=== PATIENT | female | born 1965 | race Caucasian/White ===

== ENCOUNTER 2019-07-05 10:41 | Emergency (ER) | payer BC, SELFPAY ==
--- NOTE | ~2019-07-05 | XR_ITS ---
XR foot RT 2V 07/05/2019 12:02 Indication: Diabetic foot. Right foot swelling. Phantom first toe pain. Procedure: 2 views right foot Comparison: 06/06/2019 Findings: Status post amputation of the right first toe at the metatarsophalangeal joint. There is a nondisplaced fracture of the second proximal phalanx. Lisfranc joint intact. There is mild polyarticu lar osteoarthritis. Impression: 1: Nondisplaced fracture right second proximal phalanx. 2: Status post amputation right first toe at the metatarsophalangeal joint. Reviewed, dictated and finalized at location A. HIATRY ADULT PHYSICIAN Impression: 1: Nondisplaced fracture right second proximal phalanx. 2: Status post amputation right first toe at the metatarsophalangeal joint.
[2019-07-05 10:47] VITALS: BP 120/64; PULSE 90; RESP 16; TEMP 37.1; O2SAT 97
--- NOTE | 2019-07-05 11:27 | ED.LOWEXIN ---
HPI - Extremity Injury (Lower) General Chief Complaint: Extremity Injury, Lower Stated Complaint: toe swelling Time Seen by Provider: 07/05/19 11:15 Source: patient Mode of arrival: ambulatory Limitations: no limitations History of Present Illness HPI Narrative: A 53 y/o female presents to the ED with c/o right 2nd toe redness and swelling. She notes that she had her right great toe amputated on 06/09/[address] Kuo. Pt adds that she was told to come to the ED if there was any changes to her right foot. She reports warmth to the amputation site, but denies numbness and tingling. Pt has a PMHx of diabetes, HTN, and hyperlipidemia. MD complaint: other (Right 2nd toe redness and swelling) Injury: Right: toes (2nd) Context: other (Recent right great toe amputation) Other symptoms: other (Warmth to right great toe amputation site) Related Data Home Medications Medication Instructions Recorded Confirmed Adult One Daily Multivitamin 0.4 mg PO DAILY 06/06/19 06/23/19 atorvastatin 10 mg PO DAILY 06/06/19 06/23/19 fluoxetine 40 mg PO DAILY 06/06/19 06/23/19 glyburide-metformin 2 tablet PO BID 06/06/19 06/23/19 losartan 100 mg PO DAILY 06/06/19 06/23/19 Allergies Allergy/AdvReac Type Severity Reaction Status Date / Time Penicillins Allergy Unknown Verified 07/05/19 10:52 Review of Systems Review of Systems: All systems reviewed & are unremarkable except as noted in HPI and below Integumentary/Breasts: Skin/Breast: Reports erythema (Right 2nd toe), Reports skin swelling (Right 2nd toe) and Reports other (Warmth to right great toe amputation site) Neurologic: Denies numbness and Denies tingling PMFSH Past Medical History Medical History 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) Diabetes mellitus type 2 with complications Diabetic foot ulcer Hypercholesterolemia Hypertension Surgical History Surgical History History of surgical procedure on eye proper using laser Family History Family History Father , father of dementia No problems noted. Mother Diabetes mellitus Social History Social History Smoking packs per day: 0.5 Smoking cigarettes per day: 10.0 Smoking status: Former smoker Additional smoking assessment comments: does not smoke cigarettes Alcohol intake: current Drinks per week: 2 Substance use: never Gender identity (if verbalized by the patient): Female Spiritual care concerns: No Agree to blood products: Yes Exam Narrative: Exam Narrative: General appearance: Well-developed, well-nourished Skin: Normal color, right foot showed status post right big toe amputation, the wound is dry and clean, diffuse swelling, redness and slight warmth of the second toe dorsally, no tenderness which is Head: Normocephalic, nontraumatic Eyes: Clear conjunctiva ENT: Oropharynx normal, ears normal, nose normal Neck: Supple, nontender Chest and respiratory: Airway patent, no respiratory distress, no accessory muscle use Heart: Regular rate/rhythm Vascular: Normal peripheral pulses, normal capillary refill. 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 Kuo. They agree with plan to prescribe patient Keflex and sent her home. Date: 07/05/19 Time: 12:38 Vital Signs Vital signs: Vital Signs Temperature 37.1 C
[2019-07-05 12:32] LABS: Basophils Absolute Auto 0.1 K/mm3 (0.0-0.1); Basophils Percent Auto 0.6 % (0.2-1.2); Eosinophils Absolute Auto 2.1 K/mm3 (0-0.3); Hematocrit 33.5 % (37.0-47.0); Hemoglobin 11.1 g/dL (12.0-15.0); Immature Granulocyte Absolute 0.02 K/mm3 (0.00-0.031); Immature Granulocyte Percent A 0.2 % (0-0.5); Lymphocytes Absolute Auto 1.33 K/mm3 (0.9-3.2); Lymphocytes Percent Auto 14.9 % (18.3-44.2); Mean Corpuscular HGB Conc 33.1 g/dl (32-36); Mean Corpuscular Hemoglobin 29.8 pg (26-34); Mean Corpuscular Volume 90.1 fl (80-100); Mean Platelet Volume 10.4 fl (7.4-10.4); Monocytes Absolute Auto 0.5 K/mm3 (0.1-0.6); Monocytes Percent Auto 5.1 % (2.6-8.5); Neutrophils Percent Auto 56.2 % (45.5-73.1); Platelet Count Result 200 k/mm3 (150-375); Red Blood Count 3.72 M/mm3 (4.2-5.4); Red Cell Distribution Width 12.3 % (11.5-14.5); White Blood Count 8.9 K/mm3 (4.5-10.0)
[2019-07-05 12:42] LABS: Prothrombin Time 13.1 Seconds (11.1-14.7)
[2019-07-05 12:43] LABS: Alanine Aminotransferase 19 U/L (4-35); Albumin Level 4.2 g/dL (3.5-5.1); Alkaline Phosphatase 136 U/L (38-126); Aspartate Amino Transferase 27 U/L (14-36); Bilirubin,Total 0.9 mg/dL (0.2-1.3); Blood Urea Nitrogen 32 mg/dL (7-17); Calcium 9.7 mg/dL (8.4-10.2); Carbon Dioxide 26 mmol/L (22-30); Chloride 97 mmol/L (98-107); Estimated CRCL calculation 49 ml/min; Estimated Glomerular Filt Rate 36; Glucose 225 mg/dL (65-105); Potassium 5.2 mmol/L (3.4-5.0); Sodium 134 mmol/L (137-145)
[2019-07-05 13:36] VITALS: BP 136/55; PULSE 77; RESP 16; O2SAT 100
== END 2019-07-05 14:40 | disposition home or self-care (01) ==
PROVIDERS: Emergency Provider Emergency Medicine; PCP Internal Medicine
DX: T87.43 Infection of amputation stump, right lower extremity (principal); S92.514A Nondisplaced fracture of proximal phalanx of right lesser toe(s), initial encounter for closed fracture; E11.69 Type 2 diabetes mellitus with other specified complication; E78.00 Pure hypercholesterolemia, unspecified; I10 Essential (primary) hypertension; F17.210 Nicotine dependence, cigarettes, uncomplicated; X58.XXXA Exposure to other specified factors, initial encounter; Z79.84 Long term (current) use of oral hypoglycemic drugs
CPT/HCPCS: 36415; 73620; 80053; 85025; 85610; 87040; 96365; 96366; 99284; J3370

== ENCOUNTER 2019-07-14 07:51 | Outpatient (RCR) | payer BC, SELFPAY ==
[2019-06-23 09:12] VITALS: BMI 37.6
--- NOTE | 2019-06-23 10:30 | P.PNOP_ITS ---
Progress Note: A&P Assessment and Plan (1) Amputation toe: Onset Date: 06/08/19 Qualifiers: Laterality: right Qualified Code(s): S98.131A - Complete traumatic amputation of one right lesser toe, initial encounter Code(s): S98.139A - Complete traumatic amputation of one unspecified lesser toe, initial encounter Status: Acute Assessment and Plan: [facility] wound clinic evaluation 3 weeks s/p right hallux amputation. Incision well- approximated. Sutures removed today. Scant serous drainage. No surrounding redness/warmth/swelling. Patient to continue transfer dressing to incision line and cover dry x2 weeks. Continue use of post-op shoe. Patient will need to be fit with custom orthotics/depth shoes. Continue use of walker x1 week/PWB on heel and then transition to WBAT. Monitor for signs/symptoms of infection to report to ED immediately. Discussed importance of close blood glucose control/proper nutrition. Patient completed IV antibiotics yesterday. Awaiting final recommendations from Dr. Ward. Midline still in place. Home health to visit tomorrow. Follow up in [address] Kuo. Subjective Subjective Date/Time Seen: 06/23/19 10:30 [facility] wound clinic evaluation s/p right hallux amputation. Review of Systems Constitutional: Constitutional: Denies chills, Denies fatigue and Denies night sweats Cardiovascular: Cardiovascular: Denies chest pain, Denies diaphoresis, Denies lightheadedness and Denies palpitations Respiratory: Respiratory: Denies cough and Denies dyspnea Gastrointestinal: Gastrointestinal: Denies abdominal pain, Denies diarrhea, Denies nausea and Denies vomiting Genitourinary: Genitourinary: Denies urinary hesitancy Musculoskeletal: Musculoskeletal: Reports numbness (chronic neuropathy ) and Reports tingling (chronic neuropathy ) Exam Const: General: comfortable and no acute distress Resp: Effort & Inspection: normal respiratory effort Cardio: Rate: regular rate Rhythm: regular rhythm GI: Inspection: non-distended Auscultation: normal bowel sounds Skin: Wounds: wounds noted (see extremity exam ) Neuro: Cognition (Neuro): normal cognition Motor exam (neuro): 5/5 motor strength present throughout Sensory Exam: normal sensation (chronic neuropathy b/l LE ) Extrem: Right lower extremity: foot (s/p right Hallux amputation. ) Other: Right Hallux Amputation. Incision remains well-approximated, sutures removed. Scant serousanguinous drainage. Surrounding erythema improved. Negative Oliverio's Sign. Palpable pedal pulses. Decreased sensation b/l LE from hindfoot distal. Psych: Mental Status: mental status grossly normal Affect: normal affect Objective Data Meds/Results Medications: Active Medications Generic Name Dose Route Start Last Admin Trade Name Freq PRN Reason Stop Dose Admin Wound Care/Dressing Products 2 patch 06/23/19 08:33 Mepilex Transfer Drsg 6x8 TOPICAL 09/22/19 10:00 PRN PRN Wound Care
--- NOTE | 2019-07-14 09:08 | PM.PNORT ---
Progress Note: A&P Assessment and Plan (1) Diabetes mellitus type 2 with complications: Code(s): E11.8 - Type 2 diabetes mellitus with unspecified complications Status: Chronic (2) Amputation toe: Onset Date: 06/08/19 Qualifiers: Laterality: right Qualified Code(s): S98.131A - Complete traumatic amputation of one right lesser toe, initial encounter Code(s): S98.139A - Complete traumatic amputation of one unspecified lesser toe, initial encounter Status: Acute Assessment and Plan: Five weeks status post right hallux amputation. Incision well-healed. No signs of infection at amputation site. (3) Toe fracture, right: Qualifiers: Encounter type: subsequent encounter Toe: lesser toe Fracture type: closed Phalanx: middle Fracture alignment: nondisplaced Fracture healing: with delayed healing Qualified Code(s): S92.524G - Nondisplaced fracture of middle phalanx of right lesser toe(s), subsequent encounter for fracture with delayed healing Code(s): S92.911A - Unspecified fracture of right toe(s), initial encounter for closed fracture Status: Acute Assessment and Plan: Right 2nd toe fracture. Discussed concern for possible infection although there is no redness, warmth or drainage today. Patient and family feel that the swelling has improved and that overall she is doing better. Discussed need to keep a close eye on this. There did checked toe daily. Continue with postoperative shoe for protection. Notify office for any changes. Otherwise follow-up in 10 days for new radiographs right foot and re-evaluation. Subjective Subjective Date/Time Seen: 07/14/19 08:20 Patient returns for follow-up of right hallux osteomyelitis status post amputation June 08, 2019. Completed intravenous antibiotics approximately 2 weeks ago. Had episode of 2nd toe swelling last week. She presented to the emergency room and was told she had a fracture. She was started on oral antibiotics for prophylaxis. She states swelling in the 2nd toe has slightly improved since the episode. She has no pain due to her neuropathy. No systemic complaints, no fever, chills, redness or proximal streaking, systemic complaints. Review of Systems Constitutional: Constitutional: Reports chills and Reports difficulty sleeping Eyes: Eyes: Reports no additional eye complaints ENT: Reports Normal hearing present Cardiovascular: Cardiovascular: Denies chest pain, Denies lightheadedness and Denies palpitations Respiratory: Respiratory: Denies cough, Denies dyspnea, Denies dyspnea on exertion and Denies wheezing Gastrointestinal: Gastrointestinal: Reports diarrhea and Reports nausea Genitourinary: Genitourinary: Reports no additional female genitourinary complaints Musculoskeletal: Musculoskeletal: Reports arthralgias (Right Hallux ) and Reports joint swelling (Right Hallux ) Integumentary/Breasts: Skin/Breast: Reports erythema (Right hallux ) and Reports wounds (Right dorsal hallux ulcer over the IP joint with probing to bone ) Neurologic: Reports numbness Comments: B/L feet, mild neuropathy Psychiatric: Psychiatric: Reports no additional psychiatric complaints Exam Const: General: comfortable and no acute distress Resp: Effort & Inspection: normal respiratory effort Cardio: Rate: regular rate Rhythm: regular rhythm GI: Inspection: non-distended Auscultation: normal bowel sounds Skin: Wounds: wounds noted (see extremity exam ) Neuro: Cognition (Neuro): normal cognition Motor exam (neuro): 5/5 motor strength present throughout Sensory Exam: normal sensation (chronic neuropathy b/l LE ) Extrem: Right lower extremity: foot (s/p right Hallux amputation. ) Other: Right Hallux Amputation incision well-healed. No openings or areas of drainage. Moderate swelling 2nd toe without erythema or drainage. No increased warmth. Crepitance noted at the proximal phalanx. Third 4th and
== END 2019-09-07 07:47 | disposition home or self-care (01) ==
LOC: ANHWOC 07:51
PROVIDERS: PCP Internal Medicine; Visit Provider Orthopaedic Surgery
DX: Z47.81 Encounter for orthopedic aftercare following surgical amputation (principal)
CPT/HCPCS: 99211; 99212; G0463

== ENCOUNTER 2019-11-30 10:27 | Outpatient (CLI) | payer BC, SELFPAY ==
--- NOTE | ~2019-11-30 | XR_ITS ---
EXAMINATION: XR ankle RT min 3V, XR foot RT min 3V DATE: 11/30/2019 10:51 INDICATION: Medial right foot and ankle pain. TECHNIQUE: 1. Anteroposterior, mortise, additional oblique and lateral view of the right ankle were obtained. 2. Dorsoplantar, two oblique and lateral views of the right foot were obtained. COMPARISON: None. FINDINGS: First transmetatarsal phalangeal amputation of the great toe. Fracture of the second proximal phalang eal diaphysis which is healing with 20 degree medial angulation. No other fractures identified. Mild polyarticular osteoarthritis involving the majority of the joints throughout the right foot and ankle . Moderate-sized plantar calcaneal spur. No right ankle joint effusion. Diffuse soft tissue swelling about the foot and ankle most prominent anterior to the ankle and hindfoot. IMPRESSION: 1. No acute osseous abnormality. 2. Subacute to early chronic fracture of the right second proximal phalanx which is healing with varu s angulation. 3. Degenerative skeletal changes including moderate sized plantar calcaneal spur and mild polyarticul ar osteoarthritis. Reviewed, dictated and finalized at location A. IMPRESSION: 1. No acute osseous abnormality. 2. Subacute to early chronic fracture of the right second proximal phalanx whic h is healing with varus angulation. 3. Degenerative skeletal changes including moderate sized plantar calcaneal spu r and mild polyarticular osteoarthritis.
== END 2019-11-30 10:28 | disposition home or self-care (01) ==
PROVIDERS: PCP Internal Medicine; Visit Provider Internal Medicine
DX: M25.571 Pain in right ankle and joints of right foot (principal); M86.9 Osteomyelitis, unspecified; E11.9 Type 2 diabetes mellitus without complications; N18.3 Chronic kidney disease, stage 3 (moderate)
CPT/HCPCS: 73610; 73630

== ENCOUNTER 2020-03-26 02:58 | Emergency (ER) | payer BC, SELFPAY ==
--- NOTE | ~2020-03-26 | XR_ITS ---
EXAMINATION: XR ankle RT min 3V DATE: 03/26/2020 03:47 INDICATION: Right ankle pain post fall TECHNIQUE: Anteroposterior, oblique, mortise, and lateral views of the right ankle were obtained. COMPARISON: 11/30/2019 FINDINGS: Mildly comminuted oblique fracture of the distal right fibular metaphysis with fracture line exiting the medial cortex approximately 1.2 cm above level of the tibiotalar joint line. There is 8 mm cephal ad and lateral displacement and mild posterior angulation. There is prominent widening of the medial clear space consistent with deltoid ligament tear. There is some unchanged heterotopic ossification a long the medial side of the tip of the medial malleolus as well as along the medial margin of the alicia ar dome likely sequela of a more chronic ankle sprain. There is a small fracture along the posterior malleolus with mild cephalad displacement resulting in approximately 3 mm step-off at the posterior m ost margin of the tibial plafond. In addition to the mild lateral subluxation of the talar dome with respect to the tibial plafond and there is prominent widening of the anterior tibiotalar joint space. Plantar calcaneal spur. Remaining joint spaces in the foot appear relatively preserved. IMPRESSION: 1. Unstable Gardiner B3 injury pattern at the right ankle including fractures of the lateral and posteri or malleoli and widening of the medial clear space consistent with associated deltoid ligament tear. Reviewed, dictated and finalized at location A. IMPRESSION: 1. Unstable Gardiner B3 injury pattern at the right ankle including fractures of t he lateral and posterior malleoli and widening of the medial clear space consis tent with associated deltoid ligament tear.
--- NOTE | ~2020-03-26 | XR_ITS ---
EXAMINATION: XR ankle RT 2V DATE: 03/26/2020 04:18 INDICATION: Postreduction right ankle fracture TECHNIQUE: Anteroposterior and lateral views of the right ankle were obtained. COMPARISON: 03/26/2020 3:22 AM FINDINGS: Interval reduction and splinting of the previous noted right ankle fracture subluxation including fra ctures of the lateral and posterior malleoli and deltoid ligament tear. Alignment is improved with re duction to near-anatomic alignment of the ankle mortise. There is mild residual displacement of the p osterior malleolus fragment as well as of a small lateral sided butterfly fragment at the mildly comm inuted lateral malleolar fracture. There is also mild residual widening of the medial and anterior as pects of the tibiotalar joint space. IMPRESSION: 1. Improved alignment dose reduction and splinting of a alejandra B3 injury of the right ankle with later al and posterior malleolar fractures. See prior report for further detail. Reviewed, dictated and finalized at location A. IMPRESSION: 1. Improved alignment dose reduction and splinting of a alejandra B3 injury of the right ankle with lateral and posterior malleolar fractures. See prior report fo r further detail.
[2020-03-26 03:01] VITALS: BP 199/82; PULSE 86; RESP 16; TEMP 36.6; O2SAT 100
--- NOTE | 2020-03-26 03:16 | ED.GENADULT ---
HPI - General Adult General Chief complaint: Extremity Injury, Lower Stated complaint: ankle pain Source: RN notes reviewed History of Present Illness HPI narrative: Patient presents to emergency department from home for right ankle pain. Patient states that prior to arrival she walked up the stairs and was coming on the corner when she rolled her right ankle. She states she felt a pop at that time is been able to bear weight since that time. Noticed swelling and ecchymosis around the ankle. She denies any other injury denies falling or striking her head. Patient denies any other pain except for around the right ankle. Does states she has a history of diabetes with a previous amputation of her right first toe Related Data Home Medications Medication Instructions Recorded Confirmed Adult One Daily Multivitamin 0.4 mg PO DAILY 06/06/19 06/23/19 atorvastatin 10 mg PO DAILY 06/06/19 06/23/19 fluoxetine 40 mg PO DAILY 06/06/19 06/23/19 glyburide-metformin 2 tablet PO BID 06/06/19 06/23/19 losartan 100 mg PO DAILY 06/06/19 06/23/19 Allergies Allergy/AdvReac Type Severity Reaction Status Date / Time Penicillins Allergy Unknown Verified 03/26/20 03:11 Review of Systems Review of Systems: Narrative: Gen.: Denies fevers or chills Musculoskeletal: See HPI Neuro: Denies numbness, tingling, weakness Skin: Denies rash Endo: Reports diabetes mellitus [facility] Past Medical History Medical History (Updated 03/26/20 @ 05:22 by Alonso Ramos DO) 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) Diabetes mellitus type 2 with complications Diabetic foot ulcer Hypercholesterolemia Hypertension Surgical History Surgical History History of surgical procedure on eye proper using laser Family History Family History Father , father of dementia No problems noted. Mother Diabetes mellitus Social History Social History Smoking packs per day: 0.5 Smoking cigarettes per day: 10.0 Smoking status: Former smoker Additional smoking assessment comments: does not smoke cigarettes Alcohol intake: current Drinks per week: 2 Substance use: never Gender identity (if verbalized by the patient): Female Spiritual care concerns: No Agree to blood products: Yes Exam Narrative: Exam Narrative: APPEARANCE: No acute distress, nontoxic, resting in bed Eyes: EOMI HEENT: Normocephalic, atraumatic, RESPIRATORY: No respiratory distress MUSCULOSKELETAl: The right ankle is diffusely tender to palpation with swelling and ecchymosis present, no tenderness of the proximal fibula or the base of the fifth metatarsal, there is amputation of the first toe on the right, his pulse 2+ neurovascular intact overlying skin is closed with no open wounds NEURO: Awake and alert. Following commands, speech normal, no focal deficits SKIN:: Warm, dry. Normal Color no rash or lesions Course Course Emergency Course: Called and discussed with Dr. Hughes presentation and work-up. Agrees with discharge with follow-up as an outpatient. Patient with crutches given in the emergency department states he has a walker at home. Discussed no weightbearing on right foot Discussed with patient results of workup and diagnosis. Discussed need for follow-up with primary care, proper use of medication, and reasons to return to the emergency department. Patient understands and agrees to current treatment plan Vital Signs Vital signs: Vital Signs Temperature 97.9 F 03/26/20 03:01 Pulse Rate 86 03/26/20 03:01 Respiratory Rate 16 03/26/20 03:01 Blood Pressure 199/82 H 03/26/20 03:01 Pulse Oximetry 100 03/26/20 03:01 Temperature 97.9 F 03/26/20 03:01 Pulse Rate 86 03/26/20 03:01 Respiratory Rate 16 03/26/20 03:01 Blood Pressure 199/82 H 03/26/20 03:01 Pulse Oximetry 100
--- NOTE | 2020-03-26 03:45 | PC.NURSE ---
Pedal pulse doppled right foot
[2020-03-26] MEDS: fentaNYL CITRATE INJ (*CRX) 100 MCG/2 ML VIAL 25 MCG IV PUSH (03:59)
[2020-03-26 04:00] VITALS: BP 200/87; PULSE 86; RESP 16; O2SAT 100
--- NOTE | 2020-03-26 04:20 | PC.NURSE ---
Splinting to right ankle/lower leg done by Dr Ramos
[2020-03-26 05:00] VITALS: BP 138/70; PULSE 82; RESP 16; O2SAT 99
[2020-03-26 05:30] VITALS: BP 105/51; PULSE 83; RESP 16; O2SAT 99
== END 2020-03-26 06:15 | disposition home or self-care (01) ==
PROVIDERS: Emergency Provider Emergency Medicine; PCP Internal Medicine
DX: S82.841A Displaced bimalleolar fracture of right lower leg, initial encounter for closed fracture (principal); Z89.429 Acquired absence of other toe(s), unspecified side; E11.9 Type 2 diabetes mellitus without complications; E78.00 Pure hypercholesterolemia, unspecified; I10 Essential (primary) hypertension; Z87.891 Personal history of nicotine dependence; Z79.84 Long term (current) use of oral hypoglycemic drugs; X50.9XXA Other and unspecified overexertion or strenuous movements or postures, initial encounter
CPT/HCPCS: 27788; 27810; 73600; 73610; 96374; 99285; J3010

== ENCOUNTER 2020-03-29 11:28 | Outpatient (CLI) | payer BC, SELFPAY ==
[2020-03-29 23:36] LABS: SARS-CoV-2 RNA PCR Negative
== END 2020-03-29 11:29 | disposition home or self-care (01) ==
LOC: ANHCOVIDDT 11:29
PROVIDERS: PCP Internal Medicine; Visit Provider Orthopaedic Surgery
DX: Z01.812 Encounter for preprocedural laboratory examination (principal); Z20.828 Contact with and (suspected) exposure to other viral communicable diseases
CPT/HCPCS: 87635; C9803; U0003

== ENCOUNTER 2020-03-31 00:49 | Day surgery (SDC) | payer BC, SELFPAY ==
[2020-03-29 11:45] VITALS: BMI 39.1
[2020-03-31] VITALS (13 sets, daily range): BP systolic 106–179; BP diastolic 62–88; PULSE 71–80; RESP 8–18; TEMP 36–36.6; O2SAT 93–100
--- NOTE | ~2020-03-31 | XR_ITS ---
EXAMINATION: XR surgery orthopedic DATE: 03/31/2020 12:23 INDICATION: ORIF right ankle fracture TECHNIQUE: 2 fluoroscopic spot images of the right ankle were obtained during procedure performed by Dr. Kuo. Radiologist was not present for the imaging or procedure. The amount of fluoroscopy time used during this procedure was 2.6 minutes. COMPARISON: 03/29/2020 FINDINGS: Images demonstrate open reduction and internal fixation of the previous noted right ankle fracture. T he mildly comminuted lateral malleolar fracture is been fixed with a retrograde intramedullary taylor wi th distal interlocking screw and more proximal syndesmotic screw fixation. Also extending through the taylor is 8 tightrope type syndesmotic fixation with metallic buttons at either side of a lucent tract throughout the distal tibia and fibula. There is also fixation across the tibiotalar and subtalar pepe nts with a taylor extending from the anterior metadiaphyseal region of the tibia through the medial side of the tibial plafond and, the talar dome and central portion of the calcaneus. The ankle mortise is congruent and the fibular fracture is been reduced to near-anatomic alignment. Interval decrease in now mild residual posterior displacement of a small posterior malleolar fracture which remains unfixe d. Small plantar calcaneal spur. IMPRESSION: 1. Reduction in near-anatomic alignment of a prior comminuted distal fibular fracture and subluxed ti biotalar joint with internal fixation as detailed above. 2. Decrease in the degree of posterior displacement of a small unfixed posterior malleolar fragment. Reviewed, dictated and finalized at location B. IMPRESSION: 1. Reduction in near-anatomic alignment of a prior comminuted distal fibular fr acture and subluxed tibiotalar joint with internal fixation as detailed above. 2. Decrease in the degree of posterior displacement of a small unfixed posterio r malleolar fragment.
--- NOTE | 2020-03-31 07:00 | WPDHPUPDATE1 ---
History and Physical Update Update Date/Time: 03/31/20 07:00 History and Physical has been reviewed, including an updated exam of the patient. There are NO changes in the patient's condition. Covid test negative. Risks, benefits, and alternatives have been discussed and questions answered. Patient agrees to proceed with procedure.
[2020-03-31] MEDS: LACTATED RINGERS 1,000 ML 30 ML IV CONT ×2 (09:16→11:47)
[2020-03-31] MEDS: ACETAMINOPHEN 500 MG TABLET 1000 MG PO (09:21)
--- NOTE | 2020-03-31 09:25 | WPDANESEPPF ---
Anes - Initial Pre Proc Eval Procedure: Operation Date: 03/31/20 09:30 Proposed Procedures p Open Reduction Internal Fixation Of Right Ankle Fracture - Alonzo Kuo MD Date/Time: 03/31/20 09:25 Surgeon: Alonzo Kuo MD Pre Op Diagnosis: Right Ankle Fracture Patient Data Age: 54 Gender: F Height: 5 ft 7 in Weight: 113.4 kg Allergies Allergy/AdvReac Type Severity Reaction Status Date / Time Penicillins Allergy Unknown Verified 03/29/20 11:45 reaction Home Medications Medication Instructions Recorded Confirmed Type Adult One Daily Multivitamin 0.4 mg PO DAILY 06/06/19 03/31/20 History atorvastatin 10 mg PO DAILY 06/06/19 03/31/20 History fluoxetine 40 mg PO DAILY 06/06/19 03/31/20 History glyburide-metformin 2 tablet PO BID 06/06/19 03/31/20 History losartan 100 mg PO DAILY 06/06/19 03/31/20 History foam bandage [Mepilex] #30 ea 06/10/19 03/29/20 Rx hydrocodone-acetaminophen 1 tablet PO Q4H PRN #14 tablet 03/26/20 03/29/20 Rx carvedilol 6.25 mg PO BID 03/29/20 03/31/20 History Patient hx anesthesia problems: none Family hx anesthesia problems: none PMFSH Past Medical History Medical History 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) Bimalleolar fracture of right ankle Depression Diabetes mellitus type 2 with complications Diabetic foot ulcer Hypercholesterolemia Hypertension Vision changes Surgical History Surgical History History of surgical procedure on eye proper using laser Family History Family History Father , father of dementia No problems noted. Mother Diabetes mellitus Social History Social History Smoking packs per day: 0.5 Smoking cigarettes per day: 10.0 Years smoked: 6 Smoking pack-years: 3.00 Smoking status: Former smoker Additional smoking assessment comments: QUIT 30 YEARS AGO Alcohol intake: current Drinks per week: 6 Substance use: never Gender identity (if verbalized by the patient): Female Spiritual care concerns: No Agree to blood products: Yes Anes - Eval Final PreProcedure Day of Procedure 03/31/20 09:25 Patient weight: obese Heart: regular rate and rhythm Lungs: clear to auscultation Airway: Mallampati scale class II Neurological: alert and oriented Last oral intake: >/= 8 hours ASA classification: III Emergent: no Anesthetic plan: proceed Anesthesia type and monitoring: general LMA and standard monitoring Informed Consent: The patient's anesthetic plan and its attendant risks and benefits were discussed with the patient/family/POA. Questions were solicited and answers provided to the satisfaction of the patient/family/POA.
[2020-03-31 09:26] LABS: Glucose Point of Care 167 (65-105)
[2020-03-31] MEDS: KETOROLAC 15 MG/ML VIAL (*BKC) IV PUSH (09:35)
[2020-03-31 09:49] LABS: Anion Gap 8 mmol/L (8-16); Blood Urea Nitrogen 28 mg/dL (7-17); Calcium 9.3 mg/dL (8.4-10.2); Carbon Dioxide 27 mmol/L (22-30); Chloride 105 mmol/L (98-107); Estimated CRCL calculation 61 ml/min; Estimated Glomerular Filt Rate 47; Glucose 169 mg/dL (65-105); Potassium 5.3 mmol/L (3.4-5.0); Sodium 140 mmol/L (137-145)
[2020-03-31] MEDS: ceFAZolin 2 GM/D5W 50 ML 2 GM/50 ML BAG IVPB (09:55)
[2020-03-31] MEDS: BUPIVACAINE HCL 0.5% PF 30 ML VIAL INFILTRATE (10:28)
--- NOTE | 2020-03-31 10:52 | SUR.OPER ---
Previously charted under wrong user, Jhoana Grimm RN documented procedure.
--- NOTE | 2020-03-31 12:02 | PM.PROC ---
Procedure Note - Detailed Date of procedure: 03/31/20 Pre-op diagnosis: Right Ankle Fracture right distal tibia fibular syndesmosis disruption Post-op diagnosis: same Procedure performed: Open reduction internal fixation right ankle fracture and syndesmosis Description of procedure: Indications: Patient is a 54-year-old woman with diabetes and peripheral neuropathy who sustained a right ankle bimalleolar fracture with displacement as well as syndesmosis disruption. She presents now for operative treatment. What was done: Patient identified in the preoperative holding. Informed consent given. Operative extremity marked. Patient received intravenous antibiotics. Patient brought to the operating room where underwent general anesthetic by anesthesia team. Positioned supine on operating room table. Time-out performed confirming the patient, site of the surgery and the plan. Right lower extremity prepped draped usual sterile surgical fashion using a ChloraPrep skin solution. Foot and ankle exsanguinated and a thigh tourniquet inflated to 250 mmHg. Fibular fracture addressed 1st. Longitudinal incision made over the fracture with a 15 blade knife. Hemostasis controlled electrocautery. Fascia incised in line with skin incision. Fracture identified and bone clamp used to reduce the bone. Fixation then achieved with an intramedullary nail. A incision made distal to the fibula with 15 blade knife. Blunt dissection down to the tip of the fibula. Guide pin inserted and verified with fluoroscopy. Over reaming of the guide pin performed of the nail inserted. A guide pin was removed. Image intensification confirmed location and placement. Proximal fixation was deployed. Distal fixation was achieved with 2.7 mm screws x3. Wounds thoroughly irrigated and closed with 3 0 Monocryl interrupted suture 4 O nylon for the skin. Syndesmosis then addressed. Ankle mortise and syndesmosis reduced and lateral incision from the fibula utilized. This was done with 15 blade knife and blunt dissection. Drill then placed through the fibula through the intramedullary nail into the tibia. 3.5 mm fully-threaded screw used to secure the syndesmosis. An Arthrex 2. FiberWire tight rope system then also utilized. A drill placed through the nail fibula and into the tibia. A FiberWire tight rope inserted from lateral to medial and position on the medial cortex of the tibia. Suture then tightened with good fixation. Ankle mortise in neutral with the syndesmosis secured. Image intensification confirmed alignment and placement of the hardware. Wounds thoroughly irrigated antibiotic solution and closed with 3 0 Monocryl interrupted suture and 4 O nylon interrupted sutures for the skin. patient with diabetes and peripheral neuropathy and instability of the ankle. 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 Transection pin for the ankle mortise was felt to be indicated. A threaded Steinmann pin was then placed percutaneously from the plantar heel across the subtalar and tibiotalar joints and brought out the anteromedial tibia. Stab incision made at the skin and the pin brought out through the skin go over the tibia. Pin was then cut outside the skin. Plantar insertion site closed with 4 0 nylon interrupted suture. Sterile dressing applied. The patient was then woken from anesthesia, extubated and taken to the recovery room in stable condition. All sponge, needle, instrument counts were correct at the end of the case. Implants: Arthrex distal fibula intramedullary nail. 3.5 mm fully-threaded cortical screw and Arthrex tight rope syndesmosis system Anesthesia: GLMA Surgeon: Alonzo Kuo MD Donkey Ride Operator: 1st casting assistant Estimated blood loss (mL): 10 Tourniquet time (min): 80 Drains: No Packing: No Pathology: none sent Complications: None Condition: stable Disposition: PACU
[2020-03-31 12:39] LABS: Glucose Point of Care 151 (65-105)
--- NOTE | 2020-03-31 12:58 | PC.NURSE ---
This patient, Julia Ingram, was admitted to Medical Room 253-01. Patient/family oriented to hospital policies and general routines including ID bracelet, bed and alarms, visiting hours, pain management, procedures, bathroom and other care routines, personal items, smoking policy, room service/diet, and visiting hours. Information on how to activate the Rapid Response Team has been discussed. Patient/Family are encouraged to report perceived risks to care and to ask questions if they do not understand what they are told or what they should do.
[2020-03-31 14:15] LABS: Glucose Point of Care 179 (65-105)
[2020-03-31] MEDS: DOCUSATE SODIUM 100 MG CAPSULE PO (16:55)
[2020-03-31] MEDS: metFORMIN HCL 500 MG TABLET 1000 MG PO (16:55)
[2020-03-31] MEDS: glyBURIDE 5 MG TABLET 10 MG PO (16:55)
[2020-03-31] MEDS: carvediloL 6.25 MG TABLET PO (16:56)
[2020-03-31 17:05] LABS: Glucose Point of Care 362 (65-105)
[2020-03-31] MEDS: FAMOTIDINE 20 MG TABLET PO (20:25)
[2020-03-31 21:04] LABS: Glucose Point of Care 418 (65-105)
[2020-03-31] MEDS: ACETAMINOPHEN 325 MG TABLET 650 MG PO (23:25)
[2020-04-01 02:35] VITALS: BP 126/69; PULSE 96; RESP 18; TEMP 37.1; O2SAT 96
[2020-04-01 05:47] LABS: Anion Gap 8 mmol/L (8-16); Blood Urea Nitrogen 36 mg/dL (7-17); Calcium 8.6 mg/dL (8.4-10.2); Carbon Dioxide 25 mmol/L (22-30); Chloride 100 mmol/L (98-107); Estimated CRCL calculation 57 ml/min; Estimated Glomerular Filt Rate 43; Glucose 275 mg/dL (65-105); Potassium 4.8 mmol/L (3.4-5.0); Sodium 133 mmol/L (137-145)
[2020-04-01 05:50] VITALS: BP 126/72; PULSE 80; RESP 18; TEMP 36.4; O2SAT 96
[2020-04-01 05:52] LABS: Basophils Percent Auto 0.2 % (0.2-1.2); Eosinophils Percent Auto 0.3 % (0-4.4); Hematocrit 27.9 % (37.0-47.0); Hemoglobin 9.5 g/dL (12.0-15.0); Immature Granulocyte Absolute 0.02 K/mm3 (0.00-0.031); Immature Granulocyte Percent A 0.2 % (0-0.5); Lymphocytes Absolute Auto 0.99 K/mm3 (0.9-3.2); Lymphocytes Percent Auto 10.2 % (18.3-44.2); Mean Corpuscular HGB Conc 34.1 g/dl (32-36); Mean Corpuscular Hemoglobin 30.7 pg (26-34); Mean Corpuscular Volume 90.3 fl (80-100); Mean Platelet Volume 11.1 fl (7.4-10.4); Monocytes Absolute Auto 0.6 K/mm3 (0.1-0.6); Monocytes Percent Auto 6.2 % (2.6-8.5); Neutrophils Percent Auto 82.9 % (45.5-73.1); Platelet Count Result 196 k/mm3 (150-375); Red Blood Count 3.09 M/mm3 (4.2-5.4); Red Cell Distribution Width 11.3 % (11.5-14.5); White Blood Count 9.7 K/mm3 (4.5-10.0)
[2020-04-01] MEDS: INSULIN ASPART (*BKC) 100 UNITS/ML SUB-Q (07:26)
[2020-04-01 08:00] LABS: Glucose Point of Care 203 (65-105)
[2020-04-01] MEDS: metFORMIN HCL 500 MG TABLET 1000 MG PO (08:47)
[2020-04-01 08:48] VITALS: PULSE 78
[2020-04-01] MEDS: LOSARTAN POTASSIUM 100 MG TABLET PO (08:48)
[2020-04-01] MEDS: glyBURIDE 5 MG TABLET 10 MG PO (08:48)
[2020-04-01] MEDS: FLUoxetine HCL 20 MG CAPSULE 40 MG PO (08:48)
[2020-04-01] MEDS: FAMOTIDINE 20 MG TABLET PO (08:48)
[2020-04-01] MEDS: THERAPEUTIC MULTIVITAMINS/MINERALS TAB (*BKC) 1 TABLET PO (08:48)
[2020-04-01] MEDS: carvediloL 6.25 MG TABLET PO (08:48)
[2020-04-01] MEDS: ATORVASTATIN 10 MG TABLET PO (08:48)
[2020-04-01] MEDS: ACETAMINOPHEN 325 MG TABLET 650 MG PO (08:50)
[2020-04-01 09:34] VITALS: O2SAT 96
--- NOTE | 2020-04-01 09:47 | PM.PNORT ---
Progress Note: A&P Assessment and Plan (1) Bimalleolar fracture of right ankle: Qualifiers: Encounter type: subsequent encounter Fracture type: closed Fracture healing: with routine healing Qualified Code(s): S82.841D - Displaced bimalleolar fracture of right lower leg, subsequent encounter for closed fracture with routine healing Code(s): S82.841A - Displaced bimalleolar fracture of right lower leg, initial encounter for closed fracture Status: Acute Assessment and Plan: Postoperative day 1. ORIF right ankle. Patient doing well, stable. Physical therapy this morning. Pain well controlled. Discharge home. Follow up next week in Orthopedic office. Subjective Subjective Date/Time Seen: 04/01/20 09:47 Patient awake and alert. Up in chair. States pain improved compared to preoperative. Tolerating food. Has had physical therapy this morning. Exam Const: General: healthy appearing; No in distress or confusion Orientation/consciousness: patient oriented x3 and No confusion HENMT: Head: normal to inspection, normocephalic and atraumatic Eyes: Conjunctivae: conjunctivae normal Sclera: sclerae normal Resp: Effort & Inspection: normal respiratory effort and no audible wheezes Neuro: General: patient oriented x3 and No confusion Extrem: Other: Right lower extremity splint in place. Toes with good capillary refill. Able to move toes. No calf pain. Knee exam benign. Psych: Affect: normal affect Objective Data Vital Signs Vital Signs: Vital Signs - 24 hr 03/31/20 11:47 03/31/20 12:00 03/31/20 12:15 Temperature 97.0 F L Pulse Rate 80 76 75 Respiratory Rate 8 L 11 L 11 L Blood Pressure 106/71 131/62 136/72 Pulse Oximetry 100 100 100 03/31/20 12:30 03/31/20 12:45 03/31/20 13:00 Temperature 97.0 F L Pulse Rate 78 74 73 Respiratory Rate 13 13 16 Blood Pressure 128/68 139/69 146/75 H Pulse Oximetry 93 96 98 03/31/20 13:15 03/31/20 13:45 03/31/20 14:45 Temperature 97.4 F L 97.1 F L 97.1 F L Pulse Rate 78 71 78 Respiratory Rate 16 18 18 Blood Pressure 153/86 H 147/88 H 142/70 H Pulse Oximetry 99 98 100 03/31/20 16:56 03/31/20 18:01 03/31/20 22:31 Temperature 96.8 F L 97.8 F Pulse Rate 80 80 76 Respiratory Rate 16 18 Blood Pressure 142/84 H 179/81 H Pulse Oximetry 99 99 04/01/20 02:35 04/01/20 05:50 04/01/20 08:48 Temperature 98.8 F 97.5 F L Pulse Rate 96 80 78 Respiratory Rate 18 18 Blood Pressure 126/69 126/72 Pulse Oximetry 96 96 04/01/20 09:34 Temperature Pulse Rate Respiratory Rate Blood Pressure Pulse Oximetry 96 Intake/Output Intake/Output: Intake & Output 03/29/20 03/30/20 03/31/20 04/01/20 23:59 23:59 23:59 23:59 Intake Total 730 1330 Output Total 200 Balance 730 1130 Meds/Results Medications: Active Medications Generic Name Dose Route Start Last Admin Trade Name Freq PRN Reason Stop Dose Admin Acetaminophen 650 mg 03/31/20 12:50 04/01/20 08:50 Acetaminophen 325 Mg Tablet PO 650 mg Q6H PRN Administration Fever Hydrocodone Bitart/Acetaminophen 1 tab 03/31/20 12:50 Hydrocodone/Acetaminophen (*Crx) 5-325 Mg Tablet PO Q4H PRN PAIN RATED 4-6 Atorvastatin Calcium 10 mg 04/01/20 09:00 04/01/20 08:48 Atorvastatin 10 Mg Tablet PO 10 mg DAILY LEIF Administration Carvedilol 6.25 mg 03/31/20 17:00 04/01/20 08:48 Carvedilol 6.25 Mg Tablet PO 6.25 mg BID LEIF Administration Dextrose 12.5 gm 03/31/20 22:23 Dextrose 50% 25 Gm/50 Ml Syringe IV PUSH PRN PRN Hypoglycemia Protocol Diazepam 5 mg 03/31/20 12:50 Diazepam (*Crx) 5 Mg Tablet PO Q8H PRN Muscle Spasm Docusate Sodium 100 mg 03/31/20 17:00 04/01/20 08:49 Docusate Sodium 100 Mg Capsule PO Not Given BID LEIF Famotidine 20 mg 03/31/20 21:00 04/01/20 08:48 Famotidine 20 Mg Tablet PO 20 mg Q12HR LEIF Administration Fluoxetine HCl 40 mg 04/01
--- NOTE | 2020-04-01 09:53 | PM.DS ---
DS: Admitting Diagnosis Admitting Diagnosis Admitting Diagnosis: r ankle fx DS: Discharge Diagnosis Discharge Diagnosis (1) Bimalleolar fracture of right ankle: Qualifiers: Encounter type: subsequent encounter Fracture type: closed Fracture healing: with routine healing Qualified Code(s): S82.841D - Displaced bimalleolar fracture of right lower leg, subsequent encounter for closed fracture with routine healing Code(s): S82.841A - Displaced bimalleolar fracture of right lower leg, initial encounter for closed fracture Status: Acute Assessment and Plan: postoperative day 1. Splint in place. Continue nonweightbearing. Follow up next week orthopedic office. (2) Ankle syndesmosis disruption: Code(s): S93.439A - Sprain of tibiofibular ligament of unspecified ankle, initial encounter Status: Acute Assessment and Plan: As above (3) Diabetes mellitus type 2 with complications: Code(s): E11.8 - Type 2 diabetes mellitus with unspecified complications Status: Chronic Assessment and Plan: continue with close observation and treatment of diabetes for optimal healing. DS: Summary Time Spent with Patient Time attestation: Total time spent providing and/or coordinating discharge services: Patient is taken to the operating room on March 31 for open reduction internal fixation right ankle fracture with syndesmosis injury. Patient tolerated without incident. Admitted to the floor postoperatively for pain control and care of diabetes. Patient did well. No complications. Tolerated regular diet. Pain controlled with oral medication. Patient had Physical therapy/Occupational therapy consultation for nonweightbearing right leg. Patient cleared for discharge. Exam Const: General: healthy appearing; No in distress or confusion Orientation/consciousness: patient oriented x3 and No confusion HENMT: Head: normal to inspection, normocephalic and atraumatic Eyes: Conjunctivae: conjunctivae normal Sclera: sclerae normal Resp: Effort & Inspection: normal respiratory effort and no audible wheezes Neuro: General: patient oriented x3 and No confusion Extrem: Other: Right lower extremity splint in place. Toes with good capillary refill. Able to move toes. No calf pain. Knee exam benign. Psych: Affect: normal affect DS: Data Data Completed and Pending Labs on day of discharge: Labs from last 24 hours 04/01/20 04/01/20 04/01/20 07:23 05:09 05:09 WBC 9.7 RBC 3.09 L Hgb 9.5 L Hct 27.9 L MCV 90.3 MCH 30.7 MCHC 34.1 RDW 11.3 L Plt Count 196 MPV 11.1 H Immature Gran % (Auto) 0.2 Neut % (Auto) 82.9 H Lymph % (Auto) 10.2 L [place] % (Auto) 6.2 Eos % (Auto) 0.3 Baso % (Auto) 0.2 Lymph # (Auto) 0.99 [place] # (Auto) 0.6 Eos # (Auto) 0.0 Baso # (Auto) 0.0 Abs Immat Gran (auto) 0.02 Absolute Neuts (auto) 8.0 H Absolute Nucleated RBC 0.0 Nucleated RBC % 0.0 Sodium 133 L Potassium 4.8 Chloride 100 Carbon Dioxide 25 Anion Gap 8 BUN 36 H Creatinine 1.30 H Estim Creat Clear Calc 57 Estimated GFR 43 L Glucose 275 H POC Capillary Glucose 203 H Calcium 8.6 03/31/20 03/31/20 03/31/20 20:07 17:01 14:10 WBC RBC Hgb Hct MCV MCH MCHC RDW Plt Count MPV Immature Gran % (Auto) Neut % (Auto) Lymph % (Auto) [place] % (Auto) Eos % (Auto) Baso % (Auto) Lymph # (Auto) [place] # (Auto) Eos # (Auto) Baso # (Auto) Abs Immat Gran (auto) Absolute Neuts (auto) Absolute Nucleated RBC Nucleated RBC % Sodium Potassium Chloride Carbon Dioxide Anion Gap BUN Creatinine Estim Creat Clear Calc Estimated GFR Glucose POC Capillary Glucose 418 H 362 H 179 H Calcium 03/31/20 12:37 WBC RBC Hgb Hct MCV MCH MCHC RDW Plt Count MPV Imm
[2020-04-01 10:00] VITALS: BP 113/54; PULSE 76; RESP 16; TEMP 36.6; O2SAT 100
[2020-04-01] MEDS: HYDROcodone/acetaminophen (*CRX) 5-325 MG TABLET 1 TAB PO (10:00)
--- NOTE | 2020-04-01 11:31 | PCOTNOTE ---
On 04/01/20, the student, Lin Thomas, provided care and completed [facility] documentation on this patient. I have reviewed the student's documentation and agree with the findings.
[2020-04-01 11:47] LABS: Glucose Point of Care 92 (65-105)
--- NOTE | 2020-04-01 14:25 | WPDANESPN ---
Anes - Prog Note Post-Op Date/Time: 04/01/20 14:25 Cardiovascular status: normal Respiratory status: normal Airway patency: baseline Mental status: baseline Post-Op hydration status: normal Vital Signs: Last Vital Signs Temp 97.8 F 04/01/20 10:00 Pulse 76 04/01/20 10:00 Resp 16 04/01/20 10:00 BP 113/54 L 04/01/20 10:00 Pulse Ox 100 04/01/20 10:00 Pain Score (VAS): 06/12 I/O: Intake & Output 03/31/20 04/01/20 04/01/20 23:59 07:59 15:59 Intake Total 290 850 480 Output Total 200 Balance 290 650 480 Laboratory Tests 04/01/20 05:09 04/01/20 05:09 03/31/20 03/31/20 04/01/20 17:01 20:07 05:09 WBC 9.7 RBC 3.09 L Hgb 9.5 L Hct 27.9 L MCV 90.3 MCH 30.7 MCHC 34.1 RDW 11.3 L Plt Count 196 MPV 11.1 H Immature Gran % (Auto) 0.2 Neut % (Auto) 82.9 H Lymph % (Auto) 10.2 L [place] % (Auto) 6.2 Eos % (Auto) 0.3 Baso % (Auto) 0.2 Lymph # (Auto) 0.99 [place] # (Auto) 0.6 Eos # (Auto) 0.0 Baso # (Auto) 0.0 Abs Immat Gran (auto) 0.02 Absolute Neuts (auto) 8.0 H Absolute Nucleated RBC 0.0 Nucleated RBC % 0.0 Sodium Potassium Chloride Carbon Dioxide Anion Gap BUN Creatinine Estim Creat Clear Calc Estimated GFR Glucose POC Capillary Glucose 362 H 418 H Calcium 04/01/20 04/01/20 04/01/20 05:09 07:23 11:45 WBC RBC Hgb Hct MCV MCH MCHC RDW Plt Count MPV Immature Gran % (Auto) Neut % (Auto) Lymph % (Auto) [place] % (Auto) Eos % (Auto) Baso % (Auto) Lymph # (Auto) [place] # (Auto) Eos # (Auto) Baso # (Auto) Abs Immat Gran (auto) Absolute Neuts (auto) Absolute Nucleated RBC Nucleated RBC % Sodium 133 L Potassium 4.8 Chloride 100 Carbon Dioxide 25 Anion Gap 8 BUN 36 H Creatinine 1.30 H Estim Creat Clear Calc 57 Estimated GFR 43 L Glucose 275 H POC Capillary Glucose 203 H 92 Calcium 8.6 Post-procedural complaints: none Patient Feedback: Patient satisfied with anesthetic care.
== END 2020-04-01 09:52 | disposition home or self-care (01) ==
LOC: ANHSURGERY 07:42 → ANH2MED 04-01 09:51
PROVIDERS: PCP Internal Medicine; Visit Provider Orthopaedic Surgery
PROC: (CPT 27829; principal; 2020-03-31 09:30)
DX: S82.841A Displaced bimalleolar fracture of right lower leg, initial encounter for closed fracture (principal); S93.431A Sprain of tibiofibular ligament of right ankle, initial encounter; X50.0XXA Overexertion from strenuous movement or load, initial encounter; I10 Essential (primary) hypertension; E11.9 Type 2 diabetes mellitus without complications; E78.00 Pure hypercholesterolemia, unspecified; F32.9 Major depressive disorder, single episode, unspecified; Z87.891 Personal history of nicotine dependence; E66.9 Obesity, unspecified; Z68.38 Body mass index [BMI] 38.0-38.9, adult; Z79.84 Long term (current) use of oral hypoglycemic drugs
CPT/HCPCS: 27829; 27814; 36415; 80048; 85025; 97110; 97116; 97161; 97165; A9270; C1713; J0690; J1100; J1815; J1885; J2250; J2405; J2704; J3010; J7120

== ENCOUNTER 2020-06-09 08:54 | Outpatient (CLI) | payer MEDICARE, OTHER, SELFPAY ==
--- NOTE | ~2020-06-09 | XR_ITS ---
XR chest 2V DATE: 06/09/2020 10:24 INDICATION: Fever, cough, shortness of breath for 10 days TECHNIQUE: PA and lateral views COMPARISON: 06/06/2019 PA and lateral chest FINDINGS: Normal heart size. No hilar or mediastinal enlargement. No pulmonary infiltrate or consolid ation, pleural effusion or pulmonary vascular congestion or pneumothorax. IMPRESSION: No active cardiopulmonary disease Reviewed, dictated and finalized at location B. 9 CODER
[2020-06-09 10:40] LABS: Basophils Absolute Auto 0.04 K/mm3 (0.00-0.10); Basophils Percent Auto 0.4 % (0.0-1.0); Eosinophils Absolute Auto 0.17 K/mm3 (0.02-0.50); Eosinophils Percent Auto 1.5 % (1.0-6.0); Hematocrit 29.1 % (35.0-49.0); Hemoglobin 9.5 g/dL (12.0-15.0); Immature Granulocyte Absolute 0.07 K/mm3 (0.00-0.00); Immature Granulocyte Percent A 0.6 % (0.0-0.0); Lymphocytes Absolute Auto 1.16 K/mm3 (1.10-4.50); Lymphocytes Percent Auto 10.5 % (18.0-42.0); Mean Corpuscular HGB Conc 32.6 g/dL (32.0-36.0); Mean Corpuscular Hemoglobin 29.2 pg (27.0-31.0); Mean Corpuscular Volume 89.5 fL (78.0-102.0); Mean Platelet Volume 9.7 fl (9.2-11.8); Monocytes Percent Auto 7.3 % (2.0-11.0); Neutrophils Absolute Auto 8.8 K/mm3 (1.7-7.2); Neutrophils Percent Auto 79.7 % (50.0-70.0); Platelet Count Result 411 K/mm3 (150-420); Red Blood Count 3.25 M/mm3 (4.20-5.40); Red Cell Distribution Width 11.2 % (11.6-14.4)
[2020-06-09 11:14] LABS: SARS-CoV-2 Ag Negative (Negative)
[2020-06-09 11:19] LABS: Hemoglobin A1C 7.8 % (<5.7)
[2020-06-09 11:44] LABS: Alanine Aminotransferase 16 U/L (14-59); Albumin Level 2.8 g/dL (3.4-5.0); Alkaline Phosphatase 212 U/L (46-116); Anion Gap 9 mmol/L (8-16); Aspartate Amino Transferase 15 U/L (15-37); Bilirubin,Total 0.5 mg/dL (0.00-1.00); Blood Urea Nitrogen 32 mg/dL (7-18); Calcium 9.9 mg/dL (8.5-10.1); Carbon Dioxide 25 mmol/L (21-32); Chloride 95 mmol/L (98-108); Estimated Glomerular Filt Rate 31; Glucose 180 mg/dL (70-99); Osmolality Calculated 279 mOsm/kg (285-295); Potassium 5.7 mmol/L (3.5-5.1); Sodium 129 mmol/L (136-145); Total Protein 7.2 g/dL (6.4-8.2)
[2020-06-09 12:10] LABS: CRP 20.1 mg/dL (0.0-0.9)
[2020-06-09 23:32] LABS: SARS-CoV-2 RNA PCR Negative
[2020-06-10 15:02] LABS: Appearance Urine Clear (Clear); Bilirubin Urine Negative (Negative); Color Urine Yellow (Yellow); Glucose Urine UA Negative (Negative); Ketones Urine Negative (Negative); Leukocyte Esterase Ur Trace LEU/UL (Negative); Nitrate Urine Negative (Negative); Protein Urine 1+ (Negative); Specific Grav Ur 1.025 (1.010-1.020)
[2020-06-10 15:08] LABS: Add Urine Microscopic? YES; Bacteria Urine 4+ /hpf; Blood Urine Trace-Intact (Negative); Budding Yeast Urine Present /hpf; RBC Urine 0-2 /hpf (0-2); Squamous Epithelial Cell Urine Many /hpf (Few)
== END 2020-06-09 08:55 | disposition home or self-care (01) ==
PROVIDERS: PCP Internal Medicine; Visit Provider Internal Medicine
DX: R50.9 Fever, unspecified (principal); R05 Cough; E11.9 Type 2 diabetes mellitus without complications; R82.90 Unspecified abnormal findings in urine
CPT/HCPCS: 36415; 71046; 80053; 81001; 83036; 85025; 86140; 87086; 87426; C9803; U0003

== ENCOUNTER 2020-06-10 08:18 | Outpatient (CLI) | payer MEDICARE, SELFPAY, OTHER ==
--- NOTE | 2020-06-10 08:32 | PC.NURSE ---
Patient arrived to floor, ambulatory. GAit steady. Room 202
[2020-06-10] MEDS: SODIUM CHLORIDE 0.9% IV 1,000 ML 200 ML IVPB (08:45)
[2020-06-10] MEDS: ONDANSETRON INJ 4 MG/2 ML VIAL IV PUSH (09:08)
[2020-06-10] MEDS: PANTOPRAZOLE SODIUM IV 40 MG VIAL IV PUSH (09:09)
--- NOTE | 2020-06-10 09:16 | PC.NURSE ---
Patient tolerating IV fluids well. Increased to 450ml/hr per patient request. Zofran 4mg, pantoprazole 40mg given for c/o nausea
--- NOTE | 2020-06-10 11:20 | PC.NURSE ---
NS complete. LAC IV removed. Patient trasported off of floor via wheelchair. Tolerated well by patient.
== END 2020-06-10 08:19 | disposition home or self-care (01) ==
LOC: CHSTREATRM 08:21
PROVIDERS: PCP Internal Medicine; Visit Provider Internal Medicine
DX: E87.1 Hypo-osmolality and hyponatremia (principal); E86.0 Dehydration; R11.0 Nausea
CPT/HCPCS: 96360; 96361; 96374; 96375; C9113; J2405; J7030

== ENCOUNTER 2020-06-17 16:01 | Outpatient (CLI) | payer MEDICARE, SELFPAY, OTHER ==
[2020-06-17 16:21] LABS: Basophils Absolute Auto 0.03 K/mm3 (0.00-0.10); Basophils Percent Auto 0.3 % (0.0-1.0); Eosinophils Absolute Auto 0.11 K/mm3 (0.02-0.50); Eosinophils Percent Auto 1.2 % (1.0-6.0); Hematocrit 28.2 % (35.0-49.0); Hemoglobin 9.2 g/dL (12.0-15.0); Immature Granulocyte Absolute 0.03 K/mm3 (0.00-0.00); Immature Granulocyte Percent A 0.3 % (0.0-0.0); Lymphocytes Absolute Auto 0.96 K/mm3 (1.10-4.50); Lymphocytes Percent Auto 10.4 % (18.0-42.0); Mean Corpuscular HGB Conc 32.6 g/dL (32.0-36.0); Mean Corpuscular Hemoglobin 29.1 pg (27.0-31.0); Mean Corpuscular Volume 89.2 fL (78.0-102.0); Mean Platelet Volume 9.3 fl (9.2-11.8); Monocytes Absolute Auto 0.52 K/mm3 (0.10-0.90); Monocytes Percent Auto 5.6 % (2.0-11.0); Neutrophils Absolute Auto 7.6 K/mm3 (1.7-7.2); Neutrophils Percent Auto 82.2 % (50.0-70.0); Platelet Count Result 396 K/mm3 (150-420); Red Blood Count 3.16 M/mm3 (4.20-5.40); Red Cell Distribution Width 11.4 % (11.6-14.4); White Blood Count 9.3 K/mm3 (4.8-10.8)
[2020-06-17 16:37] LABS: Influenza Control Valid (Valid)
[2020-06-17 16:38] LABS: Alanine Aminotransferase 17 U/L (14-59); Albumin Level 2.9 g/dL (3.4-5.0); Alkaline Phosphatase 198 U/L (46-116); Amylase 44 U/L (25-115); Anion Gap 9 mmol/L (8-16); Aspartate Amino Transferase 22 U/L (15-37); Bilirubin,Total 0.6 mg/dL (0.00-1.00); Blood Urea Nitrogen 31 mg/dL (7-18); Calcium 9.7 mg/dL (8.5-10.1); Carbon Dioxide 26 mmol/L (21-32); Chloride 95 mmol/L (98-108); Estimated Glomerular Filt Rate 24; Glucose 128 mg/dL (70-99); Lipase 69 U/L (73-393); Osmolality Calculated 278 mOsm/kg (285-295); Sodium 130 mmol/L (136-145); Total Protein 8.6 g/dL (6.4-8.2)
== END 2020-06-17 16:02 | disposition home or self-care (01) ==
LOC: CHSLAB 16:03
PROVIDERS: PCP Internal Medicine; Visit Provider Nurse Practitioner Family
DX: E86.0 Dehydration (principal); R10.9 Unspecified abdominal pain
CPT/HCPCS: 80053; 82150; 83690; 85025; 87081; 87804; 87880

== ENCOUNTER 2020-06-17 16:47 | Inpatient (IN) | payer MEDICARE, OTHER, SELFPAY ==
--- NOTE | ~2020-06-17 | CT_ITS ---
EXAMINATION: CT abdomen pelvis wo con DATE: 06/17/2020 18:13 INDICATION: Generalized chest pain, diverticulitis, nausea, vomiting and weakness. TECHNIQUE: Computed tomography (CT) of the abdomen and pelvis was performed without intravenous contr ast. Automated exposure control and iterative reconstruction technique were employed. The dose-length product was 1505.27 mGy-cm. COMPARISON: None FINDINGS: Lung bases are clear. Heart size is normal. Small amount of aortic valve calcification. No pericardia l or pleural effusion. Very small sliding-type hiatal hernia with edematous-appearing wall thickening in the distal esophagus which could be seen with reflux esophagitis. Liver, gallbladder, spleen, granados creas, bilateral adrenal glands and kidneys are normal. Bowels including the appendix are normal. Warner dder, anteverted uterus and bilateral adnexa are unremarkable. No free intraperitoneal gas or fluid. No pathologically enlarged abdominal or pelvic lymphadenopathy. Severe lumbar spondylosis. IMPRESSION: 1. A small sliding-type hiatal hernia with edematous-appearing wall thickening in the distal esophagu s suggestive of reflux esophagitis. Reviewed, dictated and finalized at location A. DRAWER IMPRESSION: 1. A small sliding-type hiatal hernia with edematous-appearing wall thickening in the distal esophagus suggestive of reflux esophagitis.
--- NOTE | ~2020-06-17 | XR_ITS ---
EXAMINATION: XR chest 2V DATE: 06/17/2020 18:14 INDICATION: Generalized chest pain and weakness TECHNIQUE: PA and lateral views of the chest were obtained. COMPARISON: Chest radiograph dated 06/09/2020 FINDINGS: The lungs remain clear with no focal airspace opacities, pulmonary edema, pleural effusion or pneumot horax. The cardiomediastinal silhouette is normal. Mild thoracic spondylosis. IMPRESSION: 1. No acute cardiopulmonary disease. Reviewed, dictated and finalized at location A. SCRIBING MACHINE OPERATOR
--- NOTE | 2020-06-17 17:01 | ECG_ITS ---
Measurements Intervals [place] Rate: 84 P: 42 OR: 128 QRS: 43 QRSD: 87 T: 53 QT: 355 QTc: 421 Interpretive Statements SINUS RHYTHM BASELINE ARTIFACT- AVL, AVF NORMAL ECG Electronically Signed On 06-17-2020 19:07:52 AWNING HANGER by Cedric Joseph D.O.
[2020-06-17 17:05] VITALS: BP 173/79; PULSE 90; RESP 20; TEMP 37; O2SAT 99
[2020-06-17] MEDS: SODIUM CHLORIDE 0.9% IV 1,000 ML 200 ML (17:05)
[2020-06-17 17:17] LABS: Add Urine Microscopic? YES; Appearance Urine Sl Cloudy (Clear); Bilirubin Urine 2+ (Negative); Blood Urine 1+ (Negative); Color Urine Yellow (Yellow); Glucose Urine UA Negative (Negative); Ketones Urine 1+ (Negative); Leukocyte Esterase Ur 2+ LEU/UL (Negative); Nitrate Urine Negative (Negative); Protein Urine 2+ (Negative); Specific Grav Ur >= 1.030 (1.010-1.020); Urobilinogen Urine 0.2 mg/dL (0.2-1.0)
[2020-06-17 17:19] LABS: Bacteria Urine 2+ /hpf; Squamous Epithelial Cell Urine Many /hpf (Few)
[2020-06-17] MEDS: ONDANSETRON INJ 4 MG/2 ML VIAL IV PUSH ×2 (17:39→19:20)
[2020-06-17 17:40] VITALS: BP 141/68; PULSE 87; O2SAT 98
[2020-06-17 18:05] LABS: BNP 97.6 pg/mL (0-100); Magnesium 1.6 mg/dL (1.8-2.4)
[2020-06-17 18:16] LABS: Lactic Acid Reflex 1.3 mmol/L (0.4-2.0)
--- NOTE | 2020-06-17 18:46 | ED.WEAKNESS ---
HPI - Weakness General Chief complaint: Weakness Stated complaint: sent from doctor Time Seen by Provider: 06/17/20 17:20 Source: patient and family Mode of arrival: ambulatory Limitations: no limitations History of Present Illness HPI Narrative: Patient comes in with nausea, and LLQ pain that has gone off and on for a few days. She has had no dysuria, frequency, urgency. She states nausea has been off, and on as has LLQ discomfort. Nausea has been mild to moderate and intermittent. She has also complained of moderately severe pain in her MD Complaint: generalized weakness Duration: intermittent Location: generalized Severity: mild Severity scale (1-10): 5 Relieving factors: rest Associated symptoms: denies other symptoms and myalgias Related Data Home Medications Medication Instructions Recorded Confirmed Adult One Daily Multivitamin 0.4 mg PO DAILY 06/06/19 06/17/20 atorvastatin 10 mg PO DAILY 06/06/19 06/17/20 fluoxetine 40 mg PO DAILY 06/06/19 06/17/20 glyburide-metformin 2 tablet PO BID 06/06/19 06/17/20 losartan 100 mg PO DAILY 06/06/19 06/17/20 carvedilol 6.25 mg PO BID 03/29/20 06/17/20 colchicine [Mitigare] 0.6 mg PO BID 06/17/20 06/17/20 hydrocodone-acetaminophen 1 tablet PO PRN PRN 06/17/20 06/17/20 lorazepam 0.5 mg PO BID PRN 06/17/20 06/17/20 Allergies Allergy/AdvReac Type Severity Reaction Status Date / Time Penicillins Allergy Unknown Verified 05/18/20 08:19 reaction Review of Systems Constitutional: Constitutional: Reports no additional constitutional complaints Eyes: Eyes: Reports no additional eye complaints ENT: Reports system reviewed and no additional complaints, except as documented Cardiovascular: Cardiovascular: Reports no additional cardiovascular complaints Respiratory: Respiratory: Reports no additional respiratory complaints Gastrointestinal: Gastrointestinal: Reports abdominal pain, Reports nausea and Reports vomiting Comments: Thinks she ate something that may have been bad Genitourinary: Genitourinary: Reports no additional female genitourinary complaints Musculoskeletal: Comments: Fractured ankle in March and chronic pain in that ankle Integumentary/Breasts: Skin/Breast: Reports system reviewed and no additional complaints, except as docu Neurologic: Reports system reviewed and no additional complaints, except as documented Psychiatric: Psychiatric: Reports no additional psychiatric complaints Endocrine: Endocrine: Reports no additional endocrine complaints Hematologic/Lymphatic: Hematologic/Lymphatic: Reports no additional hematologic/lymphatic complaints Allergic/Immunologic: Allergic/Immunologic: Reports no additional allergic/immunologic complaints PMFSH Past Medical History Medical History 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) Ankle syndesmosis disruption Bimalleolar fracture of right ankle Depression Diabetes mellitus type 2 with complications Diabetic foot ulcer Encounter for Postoperative Care Hypercholesterolemia Hypertension Vision changes Surgical History Surgical History History of surgical procedure on eye proper using laser Family History Family History Father , father of dementia No problems noted. Mother Diabetes mellitus Social History Social History Smoking packs per day: 0.5 Smoking cigarettes per day: 10.0 Years smoked: 5 Smoking pack-years: 2.50 Tobacco type: cigarettes Additional smoking assessment comments: QUIT 30 YEARS AGO Alcohol intake: never Drinks per week: 6 Substance use: never Substance use type: does not use Gender identity (if verbalized by the patient): Female Spiritual care concerns: No Agree to blood products: Yes Exam Const: General: no acute distress Orientation/
[2020-06-17] MEDS: PANTOPRAZOLE SODIUM IV 40 MG VIAL IV PUSH (18:51)
[2020-06-17 18:55] VITALS: BP 169/74; PULSE 90; O2SAT 98
--- NOTE | 2020-06-17 19:21 | PC.NURSE ---
Report received, pt. resting and reports not feeling well. After speaking c pt. pt is agreeable to being admitted. ERP informed and spoke c pt. about POC.
[2020-06-17] MEDS: DEXAMETHASONE SOD PHOS INJ 4 MG/ML VIAL 10 MG IV PUSH (19:48)
[2020-06-17] MEDS: GENTAMICIN SULFATE INJ 240 MG in DEXTROSE 5% 100 ML 100 MG IVPB (19:52)
[2020-06-17 20:14] VITALS: BP 145/87; PULSE 87; RESP 18; O2SAT 97
[2020-06-17 20:38] VITALS: BMI 38.6
[2020-06-17] MEDS: SODIUM CHLORIDE 0.9% IV 1,000 ML 125 ML IV CONT (20:49)
[2020-06-17 21:00] VITALS: BP 149/85; PULSE 94; RESP 18; TEMP 36.3; O2SAT 95
--- NOTE | 2020-06-17 21:26 | ADMGEN ---
This patient, Julia Ingram, was admitted to 2nd Floor Room 226-2. Patient/family oriented to hospital policies and general routines including ID bracelet, bed and alarms, visiting hours, pain management, procedures, bathroom and other care routines, personal items, smoking policy, room service/diet, and visiting hours. Information on how to activate the Rapid Response Team has been discussed. Patient/Family are encouraged to report perceived risks to care and to ask questions if they do not understand what they are told or what they should do.
--- NOTE | 2020-06-17 22:42 | PC.NURSE ---
lab values went over with erp. patient dozing off and on. no distress noted. kv rn
[2020-06-17] MEDS: MAGNESIUM SULF 2 GM/WATER 50ML 2 GM/50 ML BAG IVPB (23:24)
--- NOTE | 2020-06-17 23:34 | PC.NURSE ---
IV magnesium sulfate infusing as ordered.
[2020-06-18] VITALS: BP 150/84; PULSE 90; RESP 20; TEMP 36.9; O2SAT 95
--- NOTE | 2020-06-18 01:02 | PC.NURSE ---
Pt asleep and no signs of discomfort noted.
--- NOTE | 2020-06-18 02:08 | PC.NURSE ---
Pt asleep and IV fluid continues to infuse as ordered.
--- NOTE | 2020-06-18 03:18 | PC.NURSE ---
Pt asleep and no signs of discomfort noted.
--- NOTE | 2020-06-18 04:09 | PC.NURSE ---
Pt asleep and IV fluid continues to infuse as ordered.
--- NOTE | 2020-06-18 05:11 | PC.NURSE ---
Pt up to the bathroom with the walker and standby assist of one. Pt voided 250 ml of slightly cloudy, lito urine. Pt returned to bed with the walker and standby assist of one. Side rails up x2 and call [place]pton within reach.
[2020-06-18] MEDS: SODIUM CHLORIDE 0.9% IV 1,000 ML 125 ML IV CONT ×2 (05:59→14:38)
[2020-06-18 06:05] LABS: Anion Gap 11 mmol/L (8-16); Blood Urea Nitrogen 38 mg/dL (7-18); Calcium 8.9 mg/dL (8.5-10.1); Carbon Dioxide 21 mmol/L (21-32); Chloride 97 mmol/L (98-108); Estimated CRCL calculation 33 ml/min; Estimated Glomerular Filt Rate 22; Glucose 304 mg/dL (70-99); Osmolality Calculated 288 mOsm/kg (285-295); Potassium 5.8 mmol/L (3.5-5.1); Sodium 129 mmol/L (136-145)
--- NOTE | 2020-06-18 06:27 | PC.NURSE ---
New bag of IV fluid infusing as ordered. Pt doesnt voice any c/o discomfort.
[2020-06-18 07:40] VITALS: BP 145/83; PULSE 92; RESP 18; TEMP 36.8; O2SAT 97
--- NOTE | 2020-06-18 08:07 | PM.IMHP ---
H&P: HPI History of Present Illness Date/Time: 06/18/20 08:07 Chief Complaint: Nausea and vomiting Narrative: Julia Ingram is a 54 year old female nausea and vomiting with left lower quadrant pain. Patient has a past medical history of amputated toe, depression, type 2 diabetes, diabetic foot ulcers, hypercholesterolemia, hypertension and visual change. According to patient she developed nausea vomiting and chills after Amina. According to patient her symptoms did not improve as as a matter fact they worsen if she notes she became lethargic this is when she made an appointment to see her primary care physician. At that time she noted that she had abnormal labs. Patient noted that yesterday she called the nurse practitioner to inform her that she continues to have nausea and vomiting and her situation had worsened she was directed to proceed to our ED. patient's vital signs on admission was 97.3, 94, 18, 95% on room air, 149/85. Patient's WBC sodium 130, potassium 6.0, creatinine 2.12 and magnesium level 1.6.UA did indicate protein with leukocytes and bacteria .Patient is being admitted for pyelonephritis, dehydration and electrolyte imbalance. Patient received Rocephin and gentamicin in the ED the patient denies SOB, CP, palpitation, extremity numbness, lightheadedness, dizziness, constipation, diarrhea, chills, or fever. Patient was able to tolerate her breakfast this morning, slept well overnight pain is controlled continues to have left lower quadrant tenderness. Patient will remain hospitalized for one additional day to monitor electrolytes and renal function. This document was completed by using [employer] speech recognition software, therefore formal wear rental clerk variances may occur. Despite proofreading, typographical errors may also occur. Review of Systems Review of Systems: All systems reviewed & are unremarkable except as noted in HPI and below (10 point system review) REPLACED BY [facility] Past Medical History Medical History 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) Ankle syndesmosis disruption Bimalleolar fracture of right ankle Depression Diabetes mellitus type 2 with complications Diabetic foot ulcer Encounter for Postoperative Care Hypercholesterolemia Hypertension Vision changes Surgical History Surgical History History of surgical procedure on eye proper using laser Family History Family History Father , father of dementia No problems noted. Mother Diabetes mellitus Social History Social History Smoking packs per day: 0.5 Smoking cigarettes per day: 10.0 Years smoked: 5 Smoking pack-years: 2.50 Smoking status: Former smoker Tobacco type: cigarettes Additional smoking assessment comments: QUIT 30 YEARS AGO Alcohol intake: current Drinks per week: 3 Substance use: never Substance use type: does not use Gender identity (if verbalized by the patient): Female Sexual Orientation (if Verbalized by the Patient): Straight or Heterosexual Spiritual care concerns: No Agree to blood products: Yes Meds Home Medications and Allergies Home Medications Medication Instructions Recorded Confirmed Type Adult One Daily Multivitamin 0.4 mg PO DAILY 06/06/19 06/17/20 History atorvastatin 10 mg PO DAILY 06/06/19 06/17/20 History fluoxetine 40 mg PO DAILY 06/06/19 06/17/20 History glyburide-metformin 2 tablet PO BID 06/06/19 06/17/20 History losartan 100 mg PO DAILY 06/06/19 06/17/20 History carvedilol 6.25 mg PO BID 03/29/20 06/17/20 History colchicine [Mitigare] 0.6 mg PO BID 06/17/20 06/17/20 History hydrocodone-acetaminophen 1 tablet PO PRN PRN 06/17/20 06/17/20 History levofloxacin 500 mg PO DAILY #10 tablet 06/17/20 Rx lorazepam 0.5 mg PO BID PRN 06/17/20 06/17/20 History omeprazole 40 m
[2020-06-18] MEDS: PANTOPRAZOLE SODIUM IV 40 MG VIAL IV PUSH ×2 (08:30→19:40)
[2020-06-18 09:01] LABS: CRP 13.7 mg/dL (0.0-0.9); Lipase 63 U/L (73-393); Magnesium 2.2 mg/dL (1.8-2.4)
[2020-06-18 09:22] LABS: Lactic Acid Reflex 0.7 mmol/L (0.4-2.0)
[2020-06-18] MEDS: cefTRIAXone 1 GM in DEXTROSE 5% IN WATER 50 ML IVPB (10:07)
[2020-06-18 12:30] LABS: Glucose Point of Care 304 (65-105)
[2020-06-18] MEDS: SODIUM POLYSTYRENE SULFONONATE 15 GM/60 ML BTL PO (14:35)
[2020-06-18 16:45] VITALS: BP 147/75; PULSE 84; RESP 18; TEMP 36.8; O2SAT 97
[2020-06-18 17:02] LABS: Glucose Point of Care 380 (65-105)
[2020-06-18 21:10] LABS: Glucose Point of Care 311 (65-105)
[2020-06-19] MEDS: SODIUM CHLORIDE 0.9% IV 1,000 ML 125 ML IV CONT ×2 (00:21→08:29)
[2020-06-19 00:26] VITALS: BP 143/73; PULSE 90; RESP 20; TEMP 37.3; O2SAT 97
--- NOTE | 2020-06-19 03:19 | PC.NURSE ---
pt sleeping, no evidence of distress noted, belongings within reach
[2020-06-19 05:52] LABS: Hematocrit 23.4 % (35.0-49.0); Hemoglobin 7.6 g/dL (12.0-15.0); Mean Corpuscular HGB Conc 32.5 g/dL (32.0-36.0); Mean Corpuscular Hemoglobin 29.2 pg (27.0-31.0); Mean Platelet Volume 10.1 fl (9.2-11.8); Platelet Count Result 361 K/mm3 (150-420); Red Cell Distribution Width 11.7 % (11.6-14.4); White Blood Count 10.4 K/mm3 (4.8-10.8)
[2020-06-19 06:11] LABS: Alanine Aminotransferase 16 U/L (14-59); Albumin Level 2.5 g/dL (3.4-5.0); Alkaline Phosphatase 170 U/L (46-116); Anion Gap 7 mmol/L (8-16); Aspartate Amino Transferase 19 U/L (15-37); Bilirubin,Total 0.3 mg/dL (0.00-1.00); Blood Urea Nitrogen 31 mg/dL (7-18); Calcium 8.3 mg/dL (8.5-10.1); Carbon Dioxide 25 mmol/L (21-32); Chloride 102 mmol/L (98-108); Estimated CRCL calculation 42 ml/min; Estimated Glomerular Filt Rate 30; Glucose 153 mg/dL (70-99); Osmolality Calculated 287 mOsm/kg (285-295); Potassium 4.7 mmol/L (3.5-5.1); Sodium 134 mmol/L (136-145); Total Protein 6.4 g/dL (6.4-8.2)
[2020-06-19 08:00] VITALS: BP 136/78; PULSE 88; RESP 16; TEMP 37.1; O2SAT 96
[2020-06-19 08:09] LABS: Glucose Point of Care 134 (65-105)
[2020-06-19] MEDS: PANTOPRAZOLE SODIUM IV 40 MG VIAL IV PUSH (08:30)
[2020-06-19] MEDS: cefTRIAXone 1 GM in DEXTROSE 5% IN WATER 50 ML IVPB (08:30)
[2020-06-19] MEDS: ENOXAPARIN 30 MG/0.3 ML SYRINGE SUB-Q (08:41)
[2020-06-19] MEDS: predniSONE 20 MG TABLET 60 MG PO (08:41)
[2020-06-19 09:15] LABS: Immature Reticulocyte Fraction 20.8 % (2.0-16.52); Reticulocyte Hemoglobin Conten 30.5 pg (28.0-35.0); Reticulocyte Percent 1.55 % (0.50-1.50); Reticulocytes Absolute 0.04 M/mm3 (0.02-0.1)
[2020-06-19 09:39] LABS: Iron 58 ug/dL (50-170); Percent Iron Saturation 31 % (12-57)
[2020-06-19 09:40] LABS: Ferritin 680 ng/mL (8-252)
--- NOTE | 2020-06-19 10:48 | P.DS_ITS ---
DS: Admitting Diagnosis Admitting Diagnosis Admitting Diagnosis: Nausea vomiting and abdominal pain DS: Discharge Diagnosis Discharge Diagnosis (1) Acute dehydration: Code(s): E86.0 - Dehydration Status: Acute Assessment and Plan: * Resolved * Secondary to nausea and vomiting * (2) Pyelonephritis: Code(s): N12 - Tubulo-interstitial nephritis, not specified as acute or chronic Status: Acute Assessment and Plan: * UA with bacteria leukocytes * UA culture normal dangelo * Patient will discharge with Levaquin x10 days * EKG sinus rhythm with a heart rate of 84 * Troponin negative (3) Obesity: Code(s): E66.9 - Obesity, unspecified Status: Acute Assessment and Plan: * Patient educated on healthy lifestyle (4) Ankle syndesmosis disruption: Code(s): S93.439A - Sprain of tibiofibular ligament of unspecified ankle, initial encounter Status: Acute Assessment and Plan: * Patient with boot to her right lower extremity * Continue use of boot (5) ZOLTAN (acute kidney injury): Code(s): N17.9 - Acute kidney failure, unspecified Status: Acute Assessment and Plan: * Possibly secondary to dehydration in pyelonephritis * Baseline creatinine appears to be between 1.20-1.30. 2.12>2.30>1.77. Improved * Patient will need to follow-up with her primary care physician in 1 to 2 weeks (6) Amputation toe: Onset Date: 06/08/19 Qualifiers: Laterality: right Qualified Code(s): S98.131A - Complete traumatic amputation of one right lesser toe, initial encounter Code(s): S98.139A - Complete traumatic amputation of one unspecified lesser toe, initial encounter Status: Acute (7) Electrolyte imbalance: Code(s): E87.8 - Other disorders of electrolyte and fluid balance, not elsewhere classified Status: Acute Assessment and Plan: * Secondary to dehydration * Hypomagnesia 2 g of mag IV given, resolved within normal limits * Hyponatremia, received IV fluids [id number] * Hyperkalemia within normal limits after Kayexalate (8) Hypercholesterolemia: Code(s): E78.00 - Pure hypercholesterolemia, unspecified Status: Chronic Assessment and Plan: * Continue statins (9) Diabetes mellitus type 2 with complications: Code(s): E11.8 - Type 2 diabetes mellitus with unspecified complications Status: Chronic Assessment and Plan: * Blood sugar 300 * Continue home medication (10) Normocytic anemia: Code(s): D64.9 - Anemia, unspecified Status: Acute Assessment and Plan: * Chronic * Appears to be at baseline * No activity bleeding noted * CBC in a.m. (11) Hypertension: Qualifiers: Hypertension type: unspecified Qualified Code(s): I10 - Essential (primary) hypertension Code(s): I10 - Essential (primary) hypertension Status: Chronic Assessment and Plan: * Blood pressure stable * Continue carvedilol 6.25, losartan 100 mg daily * (12) Abdominal pain: Code(s): R10.9 - Unspecified abdominal pain Status: Acute DS: Summary Hospital Course Reason for hospitalization: Nausea and vomiting Hospital Course: Julia Ingram is a 54 year old female that presented to ED with nausea and vomiting with left lower quadrant pain. Patient has a past medical history of amputated toe, depression, type 2 diabetes, diabetic foot ulcers, hypercholesterolemia, hypertension and visual change. According to patient
--- NOTE | 2020-06-19 10:48 | PM.DS ---
DS: Admitting Diagnosis Admitting Diagnosis Admitting Diagnosis: Nausea vomiting and abdominal pain DS: Discharge Diagnosis Discharge Diagnosis (1) Acute dehydration: Code(s): E86.0 - Dehydration Status: Acute Assessment and Plan: Resolved Secondary to nausea and vomiting (2) Pyelonephritis: Code(s): N12 - Tubulo-interstitial nephritis, not specified as acute or chronic Status: Acute Assessment and Plan: UA with bacteria leukocytes UA culture normal dangelo Patient will discharge with Levaquin x10 days EKG sinus rhythm with a heart rate of 84 Troponin negative (3) Obesity: Code(s): E66.9 - Obesity, unspecified Status: Acute Assessment and Plan: Patient educated on healthy lifestyle (4) Ankle syndesmosis disruption: Code(s): S93.439A - Sprain of tibiofibular ligament of unspecified ankle, initial encounter Status: Acute Assessment and Plan: Patient with boot to her right lower extremity Continue use of boot (5) ZOLTAN (acute kidney injury): Code(s): N17.9 - Acute kidney failure, unspecified Status: Acute Assessment and Plan: Possibly secondary to dehydration in pyelonephritis Baseline creatinine appears to be between 1.20-1.30. 2.12>2.30>1.77. Improved Patient will need to follow-up with her primary care physician in 1 to 2 weeks (6) Amputation toe: Onset Date: 06/08/19 Qualifiers: Laterality: right Qualified Code(s): S98.131A - Complete traumatic amputation of one right lesser toe, initial encounter Code(s): S98.139A - Complete traumatic amputation of one unspecified lesser toe, initial encounter Status: Acute (7) Electrolyte imbalance: Code(s): E87.8 - Other disorders of electrolyte and fluid balance, not elsewhere classified Status: Acute Assessment and Plan: Secondary to dehydration Hypomagnesia 2 g of mag IV given, resolved within normal limits Hyponatremia, received IV fluids [id number]>134 Hyperkalemia within normal limits after Kayexalate (8) Hypercholesterolemia: Code(s): E78.00 - Pure hypercholesterolemia, unspecified Status: Chronic Assessment and Plan: Continue statins (9) Diabetes mellitus type 2 with complications: Code(s): E11.8 - Type 2 diabetes mellitus with unspecified complications Status: Chronic Assessment and Plan: Blood sugar 300 Continue home medication (10) Normocytic anemia: Code(s): D64.9 - Anemia, unspecified Status: Acute Assessment and Plan: Chronic Appears to be at baseline No activity bleeding noted CBC in a.m. (11) Hypertension: Qualifiers: Hypertension type: unspecified Qualified Code(s): I10 - Essential (primary) hypertension Code(s): I10 - Essential (primary) hypertension Status: Chronic Assessment and Plan: Blood pressure stable Continue carvedilol 6.25, losartan 100 mg daily (12) Abdominal pain: Code(s): R10.9 - Unspecified abdominal pain Status: Acute DS: Summary Hospital Course Reason for hospitalization: Nausea and vomiting Hospital Course: Julia Ingram is a 54 year old female that presented to ED with nausea and vomiting with left lower quadrant pain. Patient has a past medical history of amputated toe, depression, type 2 diabetes, diabetic foot ulcers, hypercholesterolemia, hypertension and visual change. According to patient she developed nausea vomiting and chills after Amina. According to patient her symptoms did not improve as as a matter fact they worsen and she notes she became lethargic this is when she made an appointment to see her primary care physician. At that time she noted that she had abnormal labs. Patient noted that she called the nurse practitioner to inform her that she continues to have and vomiting and her situation had worsened she was directed to proceed
[2020-06-19 11:46] LABS: Glucose Point of Care 251 (65-105)
[2020-06-19 11:55] LABS: Hemoglobin 7.9 g/dL (12.0-15.0)
--- NOTE | 2020-06-19 13:09 | PC.NURSE ---
Discharge instructions reviewed with patient. Provided patient with [facility] doctor information and information about upcoming abdominal ultrasound. Patient verbalized understanding. Patient declines questions or comments. Patient wheeled off of unit per nursing staff.
--- NOTE | 2020-06-20 14:03 | PC.NURSE ---
Pt states she received and understood her discharge instructions. She also states all of your was very good .
[2020-06-25 18:49] LABS: Soluble Transferrin Receptor 0.97 mg/L (0.76-1.76)
== END 2020-06-19 13:05 | disposition home or self-care (01) | DRG 690 ==
LOC: CHSED 18:50 → CHS2ND 19:44
PROVIDERS: Nurse Practitioner; Admitting Provider Emergency Medicine; Emergency Provider Emergency Medicine; PCP Internal Medicine; Visit Provider Emergency Medicine
DX: N12 Tubulo-interstitial nephritis, not specified as acute or chronic (principal); E86.0 Dehydration; E87.8 Other disorders of electrolyte and fluid balance, not elsewhere classified; I10 Essential (primary) hypertension; E11.9 Type 2 diabetes mellitus without complications; D64.9 Anemia, unspecified; E78.00 Pure hypercholesterolemia, unspecified; K20.90 Esophagitis, unspecified without bleeding; K44.9 Diaphragmatic hernia without obstruction or gangrene; E66.9 Obesity, unspecified; Z87.891 Personal history of nicotine dependence; S93.431D Sprain of tibiofibular ligament of right ankle, subsequent encounter; Z89.421 Acquired absence of other right toe(s)
CPT/HCPCS: 36415; 71046; 74176; 80048; 80053; 81001; 82150; 82728; 83540; 83550; 83605; 83690; 83735; 83880; 84238; 84484; 85014; 85018; 85025; 85027; 85046; 86140; 86850; 86900; 86901; 87081; 87086; 87088; 87804; 87880; 93005; 96361; 96365; 96366; 96367; 96375; 96376; 99285; A9270; C9113; G0378; J0696; J1100; J1580; J1650; J1815; J2405; J3475; J7030; J7512

== ENCOUNTER 2020-06-23 08:07 | Outpatient (CLI) | payer MEDICARE, OTHER, SELFPAY ==
--- NOTE | ~2020-06-23 | US_ITS ---
EXAMINATION: US abdomen limited EXAM DATE: 06/23/2020 08:48 INDICATION: Abdomin pain. TECHNIQUE: Multiple grayscale and Doppler images of the abdomen right upper quadrant were obtained (nicki y a technologist who performed the scan) and subsequently reviewed. There is no prior study for amberly burgess. FINDINGS: The pancreatic head and body are normal in appearance. The pancreatic tail is not visualized. The l iver has normal echogenicity and contour. There are no focal liver lesions identified. There is no evidence of intrahepatic biliary duct dilation. Portal venous flow was seen in the hepatopedal, nor mal direction and has normal Doppler waveform. No right-sided hydronephrosis. Common bile duct measures 5 mm, which is normal. The gallbladder wall is normal in thickness, with ex pected amount of distention. No sonographic evidence of pericholecystic fluid. There is no cholelit hiases. Technologist performing exam reports patient did not demonstrate sonographic Wren's sign. Please note that this sign is less reliable in patients who have received pain medication. IMPRESSION: 1. Unremarkable abdominal ultrasound exam. Reviewed, dictated and finalized at location A. ROUTE CONTROLLER
== END 2020-06-23 08:08 | disposition home or self-care (01) ==
LOC: CHSIMG 08:09
PROVIDERS: PCP Internal Medicine; Visit Provider Nurse Practitioner
DX: R10.9 Unspecified abdominal pain (principal)
CPT/HCPCS: 76705

== ENCOUNTER → 2020-10-17 00:15 | Outpatient (CLI) | payer MEDICARE, OTHER, SELFPAY ==
[2020-10-17 18:48] LABS: SARS-CoV-2 RNA PCR Negative
== END ==
PROVIDERS: PCP Internal Medicine; Visit Provider Orthopaedic Surgery
DX: Z01.812 Encounter for preprocedural laboratory examination (principal); Z20.822 Contact with and (suspected) exposure to COVID-19
CPT/HCPCS: C9803; U0003; U0005

== ENCOUNTER 2020-10-17 08:07 | Outpatient (CLI) | payer MEDICARE, OTHER, SELFPAY ==
[2020-10-17 08:49] LABS: Anion Gap 4 mmol/L (8-16); Blood Urea Nitrogen 35 mg/dL (7-17); Calcium 9.9 mg/dL (8.4-10.2); Carbon Dioxide 31 mmol/L (22-30); Chloride 102 mmol/L (98-107); Estimated Glomerular Filt Rate 42; Glucose 98 mg/dL (65-105); Potassium 5.1 mmol/L (3.4-5.0); Sodium 137 mmol/L (137-145)
[2020-10-17 08:57] LABS: Prothrombin Time 13.8 Seconds (11.1-14.7)
[2020-10-17 08:58] LABS: Partial Thromboplastin Time 28.8 SECONDS (22.3-36.8)
== END 2020-10-17 08:08 | disposition home or self-care (01) ==
LOC: ANHSURGERY 08:11
PROVIDERS: Anesthesiology; PCP Internal Medicine; Visit Provider Orthopaedic Surgery
DX: Z01.812 Encounter for preprocedural laboratory examination (principal); E11.9 Type 2 diabetes mellitus without complications; N28.9 Disorder of kidney and ureter, unspecified; Z51.81 Encounter for therapeutic drug level monitoring; Z79.899 Other long term (current) drug therapy
CPT/HCPCS: 36415; 80048; 85610; 85730; C9803; U0003; U0005

== ENCOUNTER 2020-10-21 13:48 | Inpatient (IN) | payer MEDICARE, OTHER, SELFPAY ==
[2020-10-11 11:18] VITALS: BMI 39.1
--- NOTE | 2020-10-18 15:56 | PM.IMHP ---
H&P: HPI History of Present Illness Date/Time: 10/18/20 15:56 Chief Complaint: Right ankle pain and deformity Narrative: 55-year-old woman with diabetes and peripheral neuropathy who underwent open reduction internal fixation of right ankle fracture. Underwent Charcot arthropathy with destruction of the normal ankle mortise subsequent to fracture healing. Now has valgus deformity and pain at the ankle joint. Failed conservative treatment with custom bracing. Presents now for operative treatment. Review of Systems Constitutional: Constitutional: Reports chills and Reports difficulty sleeping Eyes: Eyes: Reports no additional eye complaints ENT: Reports Normal hearing present Cardiovascular: Cardiovascular: Denies chest pain, Denies lightheadedness and Denies palpitations Respiratory: Respiratory: Denies cough, Denies dyspnea, Denies dyspnea on exertion and Denies wheezing Gastrointestinal: Gastrointestinal: Reports diarrhea and Reports nausea Genitourinary: Genitourinary: Reports no additional female genitourinary complaints Musculoskeletal: Musculoskeletal: Reports arthralgias (Right Hallux ) and Reports joint swelling (Right Hallux ) Integumentary/Breasts: Skin/Breast: Reports erythema (Right hallux ) and Reports wounds (Right dorsal hallux ulcer over the IP joint with probing to bone ) Neurologic: Reports numbness Comments: B/L feet, mild neuropathy Psychiatric: Psychiatric: Reports no additional psychiatric complaints Hematologic/Lymphatic: Hematologic/Lymphatic: Denies easy bleeding Allergic/Immunologic: Allergic/Immunologic: Denies wheezing PMFSH Past Medical History Medical History 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 Mother Diabetes mellitus Social History Social History Smoking packs per day: 1 Smoking cigarettes per day: 20.0 Years smoked: 15 Smoking pack-years: 15.00 Smoking status: Former smoker Tobacco type: cigarettes Smoking end date: 06/03/90 Additional smoking assessment comments: QUIT 30 YEARS AGO Alcohol intake: current Drinks per week: 2 Substance use: never Substance use type: does not use Gender identity (if verbalized by the patient): Female Spiritual care concerns: No Agree to blood products: Yes Meds Home Medications and Allergies Home Medications Medication Instructions Recorded Confirmed Type Adult One Daily Multivitamin 0.4 mg PO DAILY 06/06/19 10/11/20 History atorvastatin 10 mg PO DAILY 06/06/19 10/11/20 History fluoxetine 40 mg PO DAILY 06/06/19 10/11/20 History glyburide-metformin 2 tablet PO BID 06/06/19 10/11/20 History losartan 50 mg PO DAILY 06/06/19 10/11/20 History carvedilol 6.25 mg PO BID 03/29/20 10/11/20 History lorazepam 0.5 mg PO BID PRN 06/17/20 10/11/20 History ondansetron HCl [Zofran] 4 mg PO Q8H PRN #30 tablet 06/19/20 10/11/20 Rx hydrocodone 5 mg-acetaminophen 325 1 tablet PO PRN PRN #30 tablet 07/20/20 10/11/20 Rx mg tablet Allergies Allergy/AdvReac Type Severity Reaction Status Date / Time Penicillins Allergy Unknown Verified 10/11/20 11:15 reaction Exam Const: General: No confusion Orientation/consciousness: patient oriented x3 and No confusion HENMT: Head: normal to inspection, normocephalic and atraumatic Eyes:
--- NOTE | 2020-10-19 12:42 | WPDANESEPPF ---
Anes - Initial Pre Proc Eval Procedure: Operation Date: 10/20/20 07:30 Proposed Procedures p Right Ankle and Subtalar Arthrodesis, - Alonzo Kuo MD s Removal Hardware Right Ankle - Alonzo Kuo MD Date/Time: 10/19/20 12:42 Surgeon: Alonzo Kuo MD Pre Op Diagnosis: right ankle charcot and painful hardware Patient Data Age: 55 Gender: F Height: 1.7 m Weight: 113.4 kg Allergies Allergy/AdvReac Type Severity Reaction Status Date / Time Penicillins Allergy Unknown Verified 10/20/20 06:56 reaction Home Medications Medication Instructions Recorded Confirmed Type Adult One Daily Multivitamin 0.4 mg PO DAILY 06/06/19 10/20/20 History atorvastatin 10 mg PO DAILY 06/06/19 10/11/20 History fluoxetine 40 mg PO DAILY 06/06/19 10/20/20 History glyburide-metformin 2 tablet PO BID 06/06/19 10/11/20 History losartan 50 mg PO DAILY 06/06/19 10/11/20 History carvedilol 6.25 mg PO BID 03/29/20 10/20/20 History lorazepam 0.5 mg PO BID PRN 06/17/20 10/11/20 History ondansetron HCl [Zofran] 4 mg PO Q8H PRN #30 tablet 06/19/20 10/11/20 Rx hydrocodone 5 mg-acetaminophen 325 1 tablet PO PRN PRN #30 tablet 07/20/20 10/11/20 Rx mg tablet Patient hx anesthesia problems: none Family hx anesthesia problems: none PMFSH Past Medical History Medical History 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 Mother Diabetes mellitus Social History Social History Smoking packs per day: 1 Smoking cigarettes per day: 20.0 Years smoked: 15 Smoking pack-years: 15.00 Smoking status: Former smoker Tobacco type: cigarettes Smoking end date: 06/03/90 Additional smoking assessment comments: QUIT 30 YEARS AGO Alcohol intake: current Drinks per week: 2 Substance use: never Substance use type: does not use Living arrangements: with family Gender identity (if verbalized by the patient): Female Spiritual care concerns: No Agree to blood products: Yes Anes - Eval Final PreProcedure Day of Procedure 10/19/20 12:42 Patient weight: obese Heart: regular rate and rhythm Lungs: clear to auscultation and normal air movement Airway: Mallampati scale class II Neurological: alert and oriented Last oral intake: >/= 8 hours ASA classification: III Emergent: no Anesthetic plan: proceed Anesthesia type and monitoring: general LMA and ETT Informed Consent: The patient's anesthetic plan and its attendant risks and benefits were discussed with the patient/family/POA. Questions were solicited and answers provided to the satisfaction of the patient/family/POA.
[2020-10-20] VITALS (15 sets, daily range): BP systolic 96–152; BP diastolic 51–78; PULSE 68–88; RESP 10–20; TEMP 36.4–37.1; O2SAT 91–100; BMI 37.4
[2020-10-20] MEDS: ACETAMINOPHEN 500 MG TABLET 1000 MG PO (07:09)
[2020-10-20] MEDS: KETOROLAC 15 MG/ML VIAL (*BKC) IV PUSH (07:10)
[2020-10-20] MEDS: LACTATED RINGERS 1,000 ML 30 ML IV CONT ×2 (07:20→11:15)
--- NOTE | 2020-10-20 07:27 | WPDHPUPDATE1 ---
History and Physical Update Update Date/Time: 10/20/20 07:27 History and Physical has been reviewed, including an updated exam of the patient. There are NO changes in the patient's condition. Covid test negative. Risks, benefits, and alternatives have been discussed and questions answered. Patient agrees to proceed with procedure.
[2020-10-20 07:28] LABS: Glucose Point of Care 117 mg/dl (65-105)
[2020-10-20] MEDS: ceFAZolin 2 GM/D5W 50 ML 2 GM/50 ML BAG IVPB (07:36)
[2020-10-20] MEDS: MINERAL OIL LIGHT 30 ML BTL TOPICAL (08:32)
[2020-10-20] MEDS: BUPIVACAINE HCL 0.5% PF 30 ML VIAL INFILTRATE (08:32)
[2020-10-20] MEDS: VANCOMYCIN HCL 1,000 MG VIAL 1000 MG TOPICAL (09:27)
[2020-10-20 11:25] LABS: Glucose Point of Care 152 mg/dl (65-105)
--- NOTE | 2020-10-20 11:26 | PM.PROC ---
Procedure Note - Detailed Date of procedure: 10/20/20 Pre-op diagnosis: right ankle charcot and painful hardware Post-op diagnosis: same Procedure performed: Right ankle arthrodesis, right subtalar joint arthrodesis, removal of deep hardware Description of procedure: Indications: Patient is a 55-year-old woman with insulin dependent diabetes and severe peripheral neuropathy. She has neuropathic destruction of the right hindfoot and ankle. She is status post neuropathic ulceration of the right foot. She initially sustained a displaced fracture of the right ankle and underwent open reduction internal fixation last year. She has had previous osteomyelitis of the right foot with amputation of the 1st ray. She went on to subsequent Charcot arthropathy of the ankle with displacement and failure of the hardware. She has declined amputation and requests salvage of the foot and presents now for operative treatment. What was done: Patient identified in the preoperative holding. Informed consent given. Operative extremity marked. Patient received intravenous antibiotics. Patient brought to the operating room where underwent general anesthetic by anesthesia team. Positioned supine on operating room table. Time-out performed confirming the patient, site of the surgery and the plan. Right lower extremity prepped draped usual sterile surgical fashion using a Betadine prep solution. Foot and ankle exsanguinated and a thigh tourniquet inflated to 250 mmHg. There was a half-dollar sized ulceration on the medial arch of the foot with devitalized surrounding tissue involving the skin, subcutaneous tissue and muscle. Fifteen blade knife used to extend the incision and the ulcer was ellipsed and debrided. Fifteen blade knife then used to debride the skin, subcutaneous tissue and muscle excising the nonviable tissue and passing this off. Wound thoroughly irrigated with antibiotic solution. Skin incision made with 15 blade knife along the lateral ankle and extending down to the sinus tarsi. Hemostasis controlled electrocautery. Fascia incised in line with skin incision. The distal portion of the intramedullary nail present in the fibula was visualized. The locking screws and the tight rope fixation were removed. The nail was then removed with the removal device. This was passed off the table. The more proximal portion of the distal fibula was then transected with a sagittal saw and this was ground up on the back table to be used as bone graft. The ankle and subtalar joints were then prepared with osteotomes and rongeur is to remove the articular surface of both joints. There was relatively well preserved morphology of the talus but the calcaneus and the subtalar joint had gone through severe neuropathic changes. The joints were then able to be aligned and provisionally pinned. Thorough irrigation with antibiotic solution was utilized. Due to the deformity with erosion of the lateral portion the tibia talus and calcaneus the distal fibula was used as wedge cuts which were shaped on the back table and placed in the lateral aspect of the tibiotalar and subtalar joints. Fixation was then achieved with an intramedullary taylor which was placed from the plantar aspect of the foot retrograde fashion into the intramedullary canal of the tibia. Sequential reaming was done from a size 9 mm up to size 10.5 mm. A size 10 mm x 180 mm length nail would be utilized. Two locking screws were placed into the calcaneus. The locking rods were used proximally and compression was applied across the joints. Two tibial locking screws were then utilized. The out transfer car operator device was removed and a distal locking cap was placed. Image intensification confirmed the alignment and placement of the hardware. Wound was thoroughly irrigated antibiotic solution and the fascia repaired with 0 Vicryl interrupted suture. Subcutaneous tissue repaired with 2 O Vicryl interrupted suture and skin repaired with lolita Shorty
--- NOTE | 2020-10-20 13:12 | ADMGEN ---
This patient, Julia Ingram, was admitted to Medical Room 254-01. Patient/family oriented to hospital policies and general routines including ID bracelet, bed and alarms, visiting hours, pain management, procedures, bathroom and other care routines, personal items, smoking policy, room service/diet, and visiting hours. Information on how to activate the Rapid Response Team has been discussed. Patient/Family are encouraged to report perceived risks to care and to ask questions if they do not understand what they are told or what they should do.
[2020-10-20] MEDS: KCL 20 MEQ/D5/0.45% SOD CHL 1,000 ML 50 ML IV CONT (13:33)
[2020-10-20] MEDS: LOSARTAN POTASSIUM 50 MG TABLET PO (14:13)
[2020-10-20] MEDS: ATORVASTATIN 10 MG TABLET PO (14:13)
[2020-10-20] MEDS: metFORMIN HCL 500 MG TABLET 1000 MG PO (16:14)
[2020-10-20] MEDS: DOCUSATE SODIUM 100 MG CAPSULE PO (16:14)
[2020-10-20] MEDS: glyBURIDE 5 MG TABLET 10 MG PO (16:15)
[2020-10-20] MEDS: carvediloL 6.25 MG TABLET PO (16:15)
[2020-10-20 16:28] LABS: Glucose Point of Care 405 mg/dl (65-105)
[2020-10-20] MEDS: HYDROcodone/acetaminophen (*CRX) 5-325 MG TABLET 1 TAB PO (17:48)
[2020-10-20] MEDS: FAMOTIDINE 20 MG TABLET PO (20:40)
[2020-10-20 21:37] LABS: Glucose Point of Care 374 mg/dl (65-105)
[2020-10-21] VITALS (18 sets, daily range): BP systolic 98–135; BP diastolic 48–80; PULSE 74–98; RESP 18–20; TEMP 36.2–37.2; O2SAT 93–100
--- NOTE | ~2020-10-21 | XR_ITS ---
EXAMINATION: XR surgery orthopedic EXAM DATE: 10/20/2020 11:10 INDICATION: Right ankle hardware removal. TECHNIQUE: Fluoroscopy used during XR surgery orthopedic performed by Dr. Alonzo Kuo MD. Rad iologist was not present for the imaging or procedure. Total fluoroscopic time of 66 seconds. The D AP for this procedure was 0.03 mGym2. A total of 6 images sent to PACS from the exam. FINDINGS: Images demonstrate ankle and subtalar joint fusion hardware, surgical defect. Severe ankle joint and hindfoot arthritic change. Distal tibial periosteal reaction. Could be chronic osteomyelit is or posttraumatic etiology. Distal fibular resection. Correlate with procedure note. IMPRESSION: Fluoroscopy used during right ankle, hind foot surgery. Reviewed, dictated and finalized at location A.
[2020-10-21] MEDS: INSULIN ASPART (*BKC) 100 UNITS/ML 6 UNITS SUB-Q (00:34)
[2020-10-21 00:44] LABS: Glucose Point of Care 332 mg/dl (65-105)
[2020-10-21 05:30] LABS: Glucose Point of Care 212 mg/dl (65-105)
[2020-10-21 05:43] LABS: Basophils Percent Auto 0.3 % (0.2-1.2); Eosinophils Absolute Auto 0.1 K/mm3 (0-0.3); Eosinophils Percent Auto 0.6 % (0-4.4); Immature Granulocyte Absolute 0.05 K/mm3 (0.00-0.031); Immature Granulocyte Percent A 0.5 % (0-0.5); Lymphocytes Absolute Auto 1.39 K/mm3 (0.9-3.2); Lymphocytes Percent Auto 12.6 % (18.3-44.2); Mean Corpuscular HGB Conc 31.7 g/dl (32-36); Mean Corpuscular Hemoglobin 28.9 pg (26-34); Mean Corpuscular Volume 91.2 fl (80-100); Mean Platelet Volume 10.2 fl (7.4-10.4); Monocytes Absolute Auto 0.4 K/mm3 (0.1-0.6); Monocytes Percent Auto 3.4 % (2.6-8.5); Neutrophils Absolute Auto 9.1 K/mm3 (1.3-6.7); Neutrophils Percent Auto 82.6 % (45.5-73.1); Platelet Count Result 173 k/mm3 (150-375); Red Blood Count 2.28 M/mm3 (4.2-5.4); Red Cell Distribution Width 13.3 % (11.5-14.5)
[2020-10-21 05:50] LABS: Hematocrit 20.8 % (37.0-47.0); Hemoglobin 6.6 g/dL (12.0-15.0)
[2020-10-21 05:59] LABS: Anion Gap 5 mmol/L (8-16); Blood Urea Nitrogen 50 mg/dL (7-17); Calcium 8.1 mg/dL (8.4-10.2); Carbon Dioxide 24 mmol/L (22-30); Chloride 104 mmol/L (98-107); Estimated CRCL calculation 36 ml/min; Estimated Glomerular Filt Rate 26; Glucose 157 mg/dL (65-105); Potassium 4.8 mmol/L (3.4-5.0); Sodium 133 mmol/L (137-145)
[2020-10-21 07:51] LABS: Glucose Point of Care 113 mg/dl (65-105)
--- NOTE | 2020-10-21 07:56 | PM.IMHP ---
H&P: HPI History of Present Illness Date/Time: 10/21/20 07:56 Review of Systems Constitutional: Constitutional: Denies excessive sweating, Denies headache(s), Denies increased appetite, Denies snoring and Denies weight gain Eyes: Eyes: Denies exophthalmos, Denies diplopia, Denies floaters and Denies loss of peripheral vision ENT: Denies facial pain, Denies headache(s), Denies odynophagia and Denies tinnitus Respiratory: Respiratory: Denies snoring Gastrointestinal: Gastrointestinal: Denies odynophagia Neurologic: Denies confusion Psychiatric: Psychiatric: Denies confusion Endocrine: Endocrine: Denies excessive sweating Hematologic/Lymphatic: Hematologic/Lymphatic: Denies easy bleeding PMFSH Past Medical History Medical History 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 Mother Diabetes mellitus Social History Social History Smoking packs per day: 1 Smoking cigarettes per day: 20.0 Years smoked: 15 Smoking pack-years: 15.00 Smoking status: Never smoker Tobacco type: cigarettes Smoking end date: 06/03/90 Additional smoking assessment comments: QUIT 30 YEARS AGO Alcohol intake: current Drinks per week: 2 Substance use: never Substance use type: does not use Gender identity (if verbalized by the patient): Female Spiritual care concerns: No Agree to blood products: Yes Meds Home Medications and Allergies Home Medications Medication Instructions Recorded Confirmed Type Adult One Daily Multivitamin 0.4 mg PO DAILY 06/06/19 10/20/20 History atorvastatin 10 mg PO DAILY 06/06/19 10/11/20 History fluoxetine 40 mg PO DAILY 06/06/19 10/20/20 History glyburide-metformin 2 tablet PO BID 06/06/19 10/11/20 History losartan 50 mg PO DAILY 06/06/19 10/11/20 History carvedilol 6.25 mg PO BID 03/29/20 10/20/20 History lorazepam 0.5 mg PO BID PRN 06/17/20 10/11/20 History ondansetron HCl [Zofran] 4 mg PO Q8H PRN #30 tablet 06/19/20 10/11/20 Rx hydrocodone 5 mg-acetaminophen 325 1 tablet PO PRN PRN #30 tablet 07/20/20 10/11/20 Rx mg tablet Allergies Allergy/AdvReac Type Severity Reaction Status Date / Time Penicillins Allergy Unknown Verified 10/20/20 06:56 reaction Vital Signs Vital Signs - 24 hr 10/20/20 11:15 10/20/20 11:30 10/20/20 11:45 Temperature 37.1 C Pulse Rate 72 79 76 Respiratory Rate 16 10 L 10 L Blood Pressure 96/58 L 118/78 107/57 L Pulse Oximetry 100 100 100 10/20/20 12:00 10/20/20 12:15 10/20/20 12:30 Temperature Pulse Rate 75 74 73 Respiratory Rate 16 14 10 L Blood Pressure 105/58 L 101/52 L 102/61 Pulse Oximetry 96 94 93 10/20/20 13:00 10/20/20 13:30 10/20/20 13:58 Temperature 36.4 C 36.5 C 36.5 C Pulse Rate 73 72 84 Respiratory Rate 16 14 16 Blood Pressure 110/56 L 111/51 L 125/71 Pulse Oximetry 91 99 94 10/20/20 14:00 10/20/20 16:15 10/20/20 18:00 Temperature 36.5 C 36.6 C Pulse Rate 76 88 79 Respiratory Rate 16 16 Blood Pressure 118/64 116/55 L Pulse Oximetry 96 100 10/20/20 20:24 10/21/20 05:02 Temperature 36.5 C 36.6 C Pulse Rate 80 80 Respiratory Rate 20 20 Blood Pressure 110/53 L 100/50 L Pulse Oximetry 99 95 Exam Const: General: No confusion Orientation/consciousness: patient oriented x3 and No confusion HENMT: Head: nor
--- NOTE | 2020-10-21 08:06 | PM.IMCN ---
Assessment and Plan Assessment and plan (1) Charcot's joint of right ankle: Code(s): M14.671 - Charcot's joint, right ankle and foot Status: Acute Assessment and Plan: Discussed nonoperative and operative treatment options with the patient. Risks and benefits of each as well as alternatives were reviewed. All of the patient's questions were answered. The risks of surgery reviewed including but not limited to: Neurovascular damage, wound complication, infection, blood clot, pulmonary embolus, stroke, myocardial infarction, and anesthetic risks up to and including . Continued pain and possible dysfunction were explained. Specific risks of the procedure including later recurrence of deformity. No guarantees were offered. If hardware used, discussed risk of failure/ breakage and possible need for removal. If complications occur, the patient understands the need for further treatment, possible further surgery. Patient verbalizes understanding and wishes to proceed. PLAN: Right ankle arthrodesis, right subtalar joint arthrodesis, removal of hardware (2) Retained orthopedic hardware: Code(s): Z96.9 - Presence of functional implant, unspecified Status: Acute (3) Acute post-hemorrhagic anemia: Code(s): D62 - Acute posthemorrhagic anemia Status: Acute Assessment and Plan: history of chronic and severe anemia. primary care provider was monitoring her anemia and once it had improved outpatient, she was able to have this surgery yesterday. last hemoglobin was 7.9 and hematocrit was 24 on June 19 of this year. intermittent episodes of severe Anemia is starting to affect her kidney function, with creatinine elevated in the past as well. -receives her 1st RBC transfusion today. Placed on continuous telemetry monitoring monitor her H&H, rechecking this afternoon. Checking her iron panel and ferritin as well this afternoon. vital signs have been stable since her admission yesterday afternoon hemoglobin dropped to 6.2 with hematocrit of 20.8. Platelets 173. also symptomatic today with dizziness and lightheadedness with any quick movement or with changing positions symptoms consistent with orthostatic hypotension (4) Electrolyte imbalance: Code(s): E87.8 - Other disorders of electrolyte and fluid balance, not elsewhere classified Status: Acute Assessment and Plan: sodium runs between 133 - 137. today sodium level was 133, down from 137 yesterday. potassium was 5.1 at admission yesterday and today has improved to 4.8 not currently receiving potassium supplements Placed on continuous telemetry monitoring (5) ZOLTAN (acute kidney injury): Code(s): N17.9 - Acute kidney failure, unspecified Status: Acute Assessment and Plan: Her creatinine is normally around 1.3. Today it is 2.0 likely due to severe anemia. likely trying to keep her dry in efforts to keep from diluting her hemoglobin & hematocrit. took an 1610 ml yesterday with 200 mL out. Today 380 ml in with 400 ml out. vital signs currently with systolic greater than 100 and BP means>65 holding antihypertensive medications to avoid any further hypotension will re-evaluate tomorrow, anticipating improved kidney function with RBC transfusions an encouraged additional intake of oral fluids HPI Data of Consult Consult date: 10/21/20 Requesting Physician: Alonzo Kuo MD Primary Care Provider: Jf Pineda MD Consult Narrative Narrative: Julia Ingram is a 55 year old female admitted for orthopedic surgery to her right Charcot ankle with Dr. Kuo. She has a history of chronic and severe anemia. Her primary care provider was monitoring her anemia and once it had improved outpatient, she was able to have this surgery yesterday. In her medical record, last hemoglobin was 7.9 and hematocrit was 24 on June 19 of this year. Her sodium runs between 133 - 137. Her creatinine
--- NOTE | 2020-10-21 08:17 | PCPTNOTE ---
The PT treatment was unable to be completed this AM. Verbal hold from RN until patient receives blood transfusion. Will continue per Plan of Care frequency and duration.
[2020-10-21] MEDS: ONDANSETRON HCL ODT 4 MG TABLET PO (08:34)
[2020-10-21] MEDS: SODIUM CHLORIDE 0.9% IV 250 ML 30 ML IV CONT ×2 (09:49→18:17)
--- NOTE | 2020-10-21 10:05 | WPDANESPN ---
Anes - Prog Note Post-Op Date/Time: 10/21/20 10:05 Cardiovascular status: normal Respiratory status: normal Airway patency: baseline Mental status: baseline Post-Op hydration status: other (hgb 6.6 getting 1 U PRBC) Vital Signs: Last Vital Signs Temp 36.2 C L 10/21/20 10:02 Pulse 79 10/21/20 10:02 Resp 18 10/21/20 10:02 BP 101/48 L 10/21/20 10:02 Pulse Ox 93 10/21/20 09:37 Pain Score (VAS): 0 I/O: Intake & Output 10/20/20 10/21/20 10/21/20 23:59 07:59 15:59 Intake Total 910 110 240 Output Total 300 400 Balance 610 -290 240 Laboratory Tests 10/21/20 05:28 10/21/20 05:28 10/20/20 10/20/20 10/20/20 11:20 16:14 20:39 WBC RBC Hgb Hct MCV MCH MCHC RDW Plt Count MPV Immature Gran % (Auto) Neut % (Auto) Lymph % (Auto) [place] % (Auto) Eos % (Auto) Baso % (Auto) Lymph # (Auto) [place] # (Auto) Eos # (Auto) Baso # (Auto) Abs Immat Gran (auto) Absolute Neuts (auto) Absolute Nucleated RBC Nucleated RBC % Sodium Potassium Chloride Carbon Dioxide Anion Gap BUN Creatinine Estim Creat Clear Calc Estimated GFR Glucose POC Capillary Glucose 152 H 405 H 374 H Calcium Blood Type Antibody Screen Crossmatch 10/20/20 10/21/20 10/21/20 23:59 03:55 05:28 WBC 11.0 H RBC 2.28 L Hgb 6.6 L* Hct 20.8 L* MCV 91.2 MCH 28.9 MCHC 31.7 L RDW 13.3 Plt Count 173 MPV 10.2 Immature Gran % (Auto) 0.5 Neut % (Auto) 82.6 H Lymph % (Auto) 12.6 L [place] % (Auto) 3.4 Eos % (Auto) 0.6 Baso % (Auto) 0.3 Lymph # (Auto) 1.39 [place] # (Auto) 0.4 Eos # (Auto) 0.1 Baso # (Auto) 0.0 Abs Immat Gran (auto) 0.05 H Absolute Neuts (auto) 9.1 H Absolute Nucleated RBC 0.0 Nucleated RBC % 0.0 Sodium Potassium Chloride Carbon Dioxide Anion Gap BUN Creatinine Estim Creat Clear Calc Estimated GFR Glucose POC Capillary Glucose 332 H 212 H Calcium Blood Type Antibody Screen Crossmatch 10/21/20 10/21/20 10/21/20 05:28 06:36 07:24 WBC RBC Hgb Hct MCV MCH MCHC RDW Plt Count MPV Immature Gran % (Auto) Neut % (Auto) Lymph % (Auto) Canyon % (Auto) Eos % (Auto) Baso % (Auto) Lymph # (Auto) [place] # (Auto) Eos # (Auto) Baso # (Auto) Abs Immat Gran (auto) Absolute Neuts (auto) Absolute Nucleated RBC Nucleated RBC % Sodium 133 L Potassium 4.8 Chloride 104 Carbon Dioxide 24 Anion Gap 5 L BUN 50 H D Creatinine 2.00 H Estim Creat Clear Calc 36 Estimated GFR 26 L Glucose 157 H POC Capillary Glucose 113 H Calcium 8.1 L Blood Type O Positive Antibody Screen Negative Crossmatch See Detail Post-procedural complaints: none Patient Feedback: Patient satisfied with anesthetic care.
[2020-10-21] MEDS: ATORVASTATIN 10 MG TABLET PO (10:11)
[2020-10-21] MEDS: DOCUSATE SODIUM 100 MG CAPSULE PO ×2 (10:11→18:18)
[2020-10-21] MEDS: FLUoxetine HCL 20 MG CAPSULE 40 MG PO (10:12)
[2020-10-21] MEDS: metFORMIN HCL 500 MG TABLET 1000 MG PO ×2 (10:12→18:18)
[2020-10-21] MEDS: glyBURIDE 5 MG TABLET 10 MG PO ×2 (10:12→18:18)
[2020-10-21] MEDS: FAMOTIDINE 20 MG TABLET PO ×2 (10:12→20:35)
--- NOTE | 2020-10-21 10:12 | PM.PNORT ---
Progress Note: A&P Assessment and Plan (1) Charcot's joint of right ankle: Code(s): M14.671 - Charcot's joint, right ankle and foot Status: Acute Assessment and Plan: postoperative day 1. Right ankle reconstruction. Some initial drainage as expected through the heel. Cast dry at this time. Good capillary refill in the toes. Pain fairly well controlled. PT/ OT today with nonweightbearing. Discharge home when medically cleared. (2) Acute post-hemorrhagic anemia: Code(s): D62 - Acute posthemorrhagic anemia Status: Acute Assessment and Plan: Chronic anemia with acute post hemorrhagic anemia from surgery superimposed. Plan for transfusion today. (3) ZOLTAN (acute kidney injury): Code(s): N17.9 - Acute kidney failure, unspecified Status: Acute Assessment and Plan: Possibly due to dehydration. Will re-evaluate after transfusion. (4) Diabetes mellitus type 2 with complications: Code(s): E11.8 - Type 2 diabetes mellitus with unspecified complications Status: Chronic Assessment and Plan: Appreciate hospitalist medical control. Subjective Subjective Date/Time Seen: 10/21/20 10:12 Post Op day: 1 Principal diagnosis: Right ankle Charcot Interval history: postop day 1 right ankle arthrodesis. Patient with nausea this a.m.. Received Zofran. No vomiting. Also found to be anemic. Blood transfusion ordered. Patient states minimal pain right ankle. Exam Const: General: No confusion Orientation/consciousness: patient oriented x3 and No confusion HENMT: Head: normal to inspection, normocephalic and atraumatic Eyes: Conjunctivae: conjunctivae normal Sclera: sclerae normal Neck: Neck: supple and nontender Chest: Chest palpation & inspection: normal inspection of the chest Resp: Effort & Inspection: normal respiratory effort and no audible wheezes Cardio: Rate: regular rate Rhythm: regular rhythm : General: Yes deferred Skin: General skin exam: no rashes or lesions noted Neuro: General: patient oriented x3 and No confusion Extrem: General: capillary refill normal Right upper extremity: normal to inspection Left upper extremity: normal to inspection Right lower extremity: hip/thigh Details: no tenderness and knee Details: abnormal ROM ( Knee range of motion deferred secondary to fracture); no tenderness and no swelling Left lower extremity: normal to inspection, hip/thigh Details: normal to inspection, knee Details: normal to inspection, ankle Details: normal to inspection and normal ROM ( Active flexion and extension intact); no tenderness and no swelling and foot Details: vascular exam Details: dorsalis pedis pulse present and normal capillary refill, tendon exam active flexion normal and active flexion abnormal and motor-sensory exam two point discrimination abnormal in all toes and light-touch abnormal in all toes; no tenderness Other: Cast in place right lower extremity. Some mild drainage through the heel noted. No active drainage. Exposed toes with good capillary refill. No calf pain. Psych: Affect: normal affect Objective Data Vital Signs Vital Signs: Vital Signs - 24 hr 10/20/20 11:15 10/20/20 11:30 10/20/20 11:45 Temperature 98.8 F Pulse Rate 72 79 76 Respiratory Rate 16 10 L 10 L Blood Pressure 96/58 L 118/78 107/57 L Pulse Oximetry 100 100 100 10/20/20 12:00 10/20/20 12:15 10/20/20 12:30 Temperature Pulse Rate 75 74 73 Respiratory Rate 16 14 10 L Blood Pressure 105/58 L 101/52 L 102/61 Pulse Oximetry 96 94 93 10/20/20 13:00 10/20/20 13:30 10/20/20 13:58 Temperature 97.6 F 97.7 F 97.7 F Pulse Rate 73 72 84 Respiratory Rate 16 14 16 Blood Pressure 110/56 L 111/51 L 125/71 Pulse Oximetry 91 99 94 10/20/20 14:00 10/20/20 16:15 10/20/20 18:00 Temperature 97.7 F 97.9 F Pulse Rate 76 88 79 Respiratory Rate 16 16 Blood Pressure 118/64 116/55 L Pulse Oximetry 96 100 10/20/20 20:2
[2020-10-21 11:27] LABS: Glucose Point of Care 135 mg/dl (65-105)
--- NOTE | 2020-10-21 12:33 | PCOTNOTE ---
Therapy on hold until H&H elevates. Will continue plan of care tomorrow.
[2020-10-21 14:33] LABS: Basophils Percent Auto 0.2 % (0.2-1.2); Eosinophils Absolute Auto 0.2 K/mm3 (0-0.3); Eosinophils Percent Auto 1.7 % (0-4.4); Hematocrit 22.8 % (37.0-47.0); Hemoglobin 7.4 g/dL (12.0-15.0); Immature Granulocyte Absolute 0.05 K/mm3 (0.00-0.031); Immature Granulocyte Percent A 0.5 % (0-0.5); Lymphocytes Absolute Auto 1.21 K/mm3 (0.9-3.2); Mean Corpuscular HGB Conc 32.5 g/dl (32-36); Mean Corpuscular Hemoglobin 29.1 pg (26-34); Mean Corpuscular Volume 89.8 fl (80-100); Mean Platelet Volume 10.2 fl (7.4-10.4); Monocytes Absolute Auto 0.4 K/mm3 (0.1-0.6); Monocytes Percent Auto 4.2 % (2.6-8.5); Neutrophils Absolute Auto 8.2 K/mm3 (1.3-6.7); Neutrophils Percent Auto 81.4 % (45.5-73.1); Platelet Count Result 161 k/mm3 (150-375); Red Blood Count 2.54 M/mm3 (4.2-5.4); Red Cell Distribution Width 13.7 % (11.5-14.5); White Blood Count 10.1 K/mm3 (4.5-10.0)
[2020-10-21 14:45] LABS: Anion Gap 4 mmol/L (8-16); Blood Urea Nitrogen 50 mg/dL (7-17); Calcium 7.9 mg/dL (8.4-10.2); Carbon Dioxide 22 mmol/L (22-30); Chloride 104 mmol/L (98-107); Estimated CRCL calculation 38 ml/min; Estimated Glomerular Filt Rate 27; Glucose 204 mg/dL (65-105); Potassium 4.7 mmol/L (3.4-5.0); Sodium 130 mmol/L (137-145)
[2020-10-21 15:49] LABS: Iron 35 ug/dL (37-170)
[2020-10-21 15:58] LABS: Percent Iron Saturation 17 % (20-50)
[2020-10-21 16:28] LABS: Glucose Point of Care 181 mg/dl (65-105)
[2020-10-21 21:46] LABS: Glucose Point of Care 224 mg/dl (65-105)
[2020-10-21 22:45] LABS: Hematocrit 26.6 % (37.0-47.0); Hemoglobin 8.6 g/dL (12.0-15.0); Mean Corpuscular HGB Conc 32.3 g/dl (32-36); Mean Corpuscular Volume 89.6 fl (80-100); Mean Platelet Volume 10.4 fl (7.4-10.4); Platelet Count Result 146 k/mm3 (150-375); Red Blood Count 2.97 M/mm3 (4.2-5.4); Red Cell Distribution Width 13.6 % (11.5-14.5); White Blood Count 8.6 K/mm3 (4.5-10.0)
[2020-10-21 22:56] LABS: Anion Gap 5 mmol/L (8-16); Blood Urea Nitrogen 49 mg/dL (7-17); Calcium 8.1 mg/dL (8.4-10.2); Carbon Dioxide 22 mmol/L (22-30); Chloride 105 mmol/L (98-107); Estimated CRCL calculation 40 ml/min; Estimated Glomerular Filt Rate 29; Glucose 204 mg/dL (65-105); Potassium 4.7 mmol/L (3.4-5.0); Sodium 132 mmol/L (137-145)
[2020-10-22] VITALS (7 sets, daily range): BP systolic 130; BP diastolic 61; PULSE 74–91; RESP 18; TEMP 36.1; O2SAT 97
[2020-10-22 08:09] LABS: Glucose Point of Care 102 mg/dl (65-105)
[2020-10-22] MEDS: glyBURIDE 5 MG TABLET 10 MG PO (09:14)
[2020-10-22] MEDS: POLYSACCHARIDE IRON COMPLEX 150 MG CAPSULE PO (09:14)
[2020-10-22] MEDS: FLUoxetine HCL 20 MG CAPSULE 40 MG PO (09:14)
[2020-10-22] MEDS: THERAPEUTIC MULTIVITAMINS/MINERALS TAB (*BKC) 1 TABLET PO (09:15)
[2020-10-22] MEDS: metFORMIN HCL 500 MG TABLET 1000 MG PO (09:15)
[2020-10-22] MEDS: LOSARTAN POTASSIUM 50 MG TABLET PO (09:15)
[2020-10-22] MEDS: carvediloL 6.25 MG TABLET PO (09:15)
[2020-10-22] MEDS: DOCUSATE SODIUM 100 MG CAPSULE PO (09:15)
[2020-10-22] MEDS: FAMOTIDINE 20 MG TABLET PO (09:15)
[2020-10-22] MEDS: ATORVASTATIN 10 MG TABLET PO (09:16)
[2020-10-22] MEDS: HYDROcodone/acetaminophen (*CRX) 5-325 MG TABLET 1 TAB PO (10:20)
[2020-10-22 11:06] LABS: Hematocrit 26.3 % (37.0-47.0); Hemoglobin 8.8 g/dL (12.0-15.0); Mean Corpuscular HGB Conc 33.5 g/dl (32-36); Mean Corpuscular Hemoglobin 29.6 pg (26-34); Mean Corpuscular Volume 88.6 fl (80-100); Mean Platelet Volume 10.3 fl (7.4-10.4); Platelet Count Result 185 k/mm3 (150-375); Red Blood Count 2.97 M/mm3 (4.2-5.4); Red Cell Distribution Width 13.6 % (11.5-14.5); White Blood Count 8.6 K/mm3 (4.5-10.0)
--- NOTE | 2020-10-22 11:18 | PM.IMPN ---
Progress Note: A&P Assessment and Plan (1) Charcot's joint of right ankle: Code(s): M14.671 - Charcot's joint, right ankle and foot Status: Acute Assessment and Plan: Sp Right ankle arthrodesis, right subtalar joint arthrodesis, removal of hardware continue pain control and some therapy, hopeful dc tomorrow (2) Retained orthopedic hardware: Code(s): Z96.9 - Presence of functional implant, unspecified Status: Acute (3) Acute post-hemorrhagic anemia: Code(s): D62 - Acute posthemorrhagic anemia Status: Acute Assessment and Plan: history of chronic and severe anemia. Sp blood transfusion hb is at 8 today (4) Electrolyte imbalance: Code(s): E87.8 - Other disorders of electrolyte and fluid balance, not elsewhere classified Status: Acute Assessment and Plan: sodium runs between 133 - 137. sodium 133 (5) ZOLTAN (acute kidney injury): Code(s): N17.9 - Acute kidney failure, unspecified Status: Acute Assessment and Plan: Her creatinine is normally around 1.3. today is 1.9 continue fluids Subjective Date/time seen: 10/22/20 11:18 Interval history: 55-year-old woman with diabetes and peripheral neuropathy who underwent open reduction internal fixation of right ankle fracture. Underwent Charcot arthropathy. Post op day 2 Sp blood transfusion, Hb is better. Hopeful DC tomorrow after more theraphy. Review of Systems Review of Systems: All systems reviewed & are unremarkable except as noted in HPI and below Exam Const: Orientation/consciousness: patient oriented x3 HENMT: Head: normal to inspection, normocephalic and atraumatic Eyes: Conjunctivae: conjunctivae normal Sclera: sclerae normal Neck: Neck: supple and nontender Chest: Chest palpation & inspection: normal inspection of the chest Resp: Effort & Inspection: normal respiratory effort and no audible wheezes Cardio: Rate: regular rate Rhythm: regular rhythm Skin: General skin exam: no rashes or lesions noted Neuro: General: patient oriented x3 and No confusion Extrem: General: other (Pt sp surgery cast, pt is able to move toes, good sensation/color of toes) Objective Data Vital Signs Vital Signs: Vital Signs - 24 hr 10/21/20 12:00 10/21/20 12:17 10/21/20 12:48 Temperature 36.3 C L 36.3 C L Pulse Rate 78 80 82 Respiratory Rate 18 18 Blood Pressure 100/58 L 100/58 L Pulse Oximetry 97 99 10/21/20 14:00 10/21/20 16:00 10/21/20 18:11 Temperature 36.6 C 37.2 C Pulse Rate 74 85 84 Respiratory Rate 18 18 Blood Pressure 108/56 L 120/80 Pulse Oximetry 98 100 10/21/20 18:27 10/21/20 19:27 10/21/20 20:00 Temperature 36.6 C 36.9 C Pulse Rate 82 97 97 Respiratory Rate 18 18 Blood Pressure 130/70 135/56 L Pulse Oximetry 97 98 10/21/20 20:27 10/21/20 20:48 10/21/20 21:25 Temperature 36.9 C 36.9 C Pulse Rate 98 97 Respiratory Rate 18 18 Blood Pressure 135/56 L 125/56 L Pulse Oximetry 98 96 98 10/22/20 00:00 10/22/20 04:00 10/22/20 05:31 Temperature 36.1 C L Pulse Rate 86 89 80 Respiratory Rate 18 Blood Pressure 130/61 Pulse Oximetry 97 10/22/20 08:00 10/22/20 09:15 Temperature Pulse Rate 90 90 Respiratory Rate Blood Pressure Pulse Oximetry Intake/Output Intake/Output: Intake & Output 10/19/20 10/20/20 10/21/20 10/22/20 23:59 23:59 23:59 23:59 Intake Total 1610 1646 240 Output Total 560 190 6309 Balance 1310 466 -367 Meds/Results Medications: Active Medications Generic Name Dose Route Start Last Admin Trade Name Freq PRN Reason Stop Dose Admin Acetaminophen 650 mg 10/20/20 12:37 Acetaminophen 325 Mg Tablet PO Q6H PRN Pain Rated 1-3 Hydrocodone Bitart/Acetaminophen 1 tab 10/20/20 12:37 10/22/20 10:20 Hydrocodone/Acetaminophen (*Crx) 5-325 Mg Tablet PO 1 tab Q4H PRN Administration Pain Rated 4-6 Atorvastatin Calcium 10 mg 10/20/20 12:55
[2020-10-22 11:21] LABS: Anion Gap 5 mmol/L (8-16); Blood Urea Nitrogen 36 mg/dL (7-17); Calcium 8.8 mg/dL (8.4-10.2); Carbon Dioxide 22 mmol/L (22-30); Chloride 106 mmol/L (98-107); Estimated CRCL calculation 51 ml/min; Estimated Glomerular Filt Rate 39; Glucose 211 mg/dL (65-105); Potassium 4.7 mmol/L (3.4-5.0); Sodium 133 mmol/L (137-145)
[2020-10-22 11:45] LABS: Glucose Point of Care 170 mg/dl (65-105)
[2020-10-22] MEDS: SODIUM CHLORIDE 0.9% IV 1,000 ML 100 ML IV CONT (12:56)
--- NOTE | 2020-10-25 12:26 | PM.DS ---
DS: Admitting Diagnosis Admitting Diagnosis Admitting Diagnosis: 55-year-old woman with diabetes and peripheral neuropathy, peripheral arterial disease with Charcot arthropathy of the right ankle and hindfoot. DS: Discharge Diagnosis Discharge Diagnosis (1) Charcot's joint of right ankle: Code(s): M14.671 - Charcot's joint, right ankle and foot Status: Acute Assessment and Plan: Cast care reviewed. Nonweightbearing right lower extremity. Edema control with ice and elevation. Reviewed blood sugar and blood pressure control. Reviewed diet. List of things to be concerned about reviewed. Patient to follow up in orthopedic office in 3 days. Follow-up with primary care physician as directed. (2) Diabetes mellitus type 2 with complications: Code(s): E11.8 - Type 2 diabetes mellitus with unspecified complications Status: Chronic (3) Amputation toe: Onset Date: 06/08/19 Qualifiers: Laterality: right Qualified Code(s): S98.131A - Complete traumatic amputation of one right lesser toe, initial encounter Code(s): S98.139A - Complete traumatic amputation of one unspecified lesser toe, initial encounter Status: Acute (4) ZOLTAN (acute kidney injury): Code(s): N17.9 - Acute kidney failure, unspecified Status: Acute (5) Retained orthopedic hardware: Code(s): Z96.9 - Presence of functional implant, unspecified Status: Acute (6) Acute post-hemorrhagic anemia: Code(s): D62 - Acute posthemorrhagic anemia Status: Acute DS: Summary Hospital Course Reason for hospitalization: Right ankle Charcot arthropathy, diabetes Hospital Course: patient taken to the operating room on October 20, 2020 underwent removal of hardware from right ankle with arthrodesis of the ankle and subtalar joint. Admitted postoperatively for routine postoperative care. Hospitalist consultation for medical management diabetes, blood sugar and hypotension. Noted to be anemic from postoperative hemorrhage as well as chronic anemia on postoperative day 1. Received blood transfusion. Hypotension which resolved fluid resuscitation and observation. Patient had physical therapy and occupational therapy consultation for nonweightbearing right lower extremity for ambulation and transfers. Some mild drainage noted through the cast through the 1st hospital day. Resolved by hospital day 2. on hospital day 2 patient tolerating regular diet, voiding appropriately, pain controlled and cleared by PT / OT. Stable for medical discharge. Patient discharged home. Status at Discharge Cognitive/behavioral status at discharge: Back to baseline Functional status at discharge: uses cane/walker ( nonweightbearing right lower extremity.) Overall status at discharge: patient is progressing back to baseline Time Spent with Patient Time attestation: Total time spent providing and/or coordinating discharge services: Exam Const: General: No confusion Orientation/consciousness: patient oriented x3 and No confusion HENMT: Head: normal to inspection, normocephalic and atraumatic Eyes: Conjunctivae: conjunctivae normal Sclera: sclerae normal Neck: Neck: supple and nontender Chest: Chest palpation & inspection: normal inspection of the chest Resp: Effort & Inspection: normal respiratory effort and no audible wheezes Cardio: Rate: regular rate Rhythm: regular rhythm : General: Yes deferred Skin: General skin exam: no rashes or lesions noted Neuro: General: patient oriented x3 and No confusion Extrem: General: capillary refill normal Right upper extremity: normal to inspection Left upper extremity: normal to inspection Right lower extremity: hip/thigh Details: no tenderness and knee Details: abnormal ROM ( Knee range of motion deferred secondary to fracture); no tenderness and no swelling Left lower extremity: normal to inspection, hip/thigh Details: normal to inspection, knee Details: normal
== END 2020-10-22 15:10 | disposition home or self-care (01) | DRG 493 ==
LOC: ANHSURGERY 13:52 → ANH2MED 10-22 13:42
PROVIDERS: Nurse Practitioner; Admitting Provider Orthopaedic Surgery; PCP Internal Medicine; Visit Provider Orthopaedic Surgery
PROC: 0SPF04Z Removal of Internal Fixation Device from Right Ankle Joint, Open Approach (ICD-10-PCS; CPT 28750; principal; 2020-10-20 07:30)
PROC: 0SPF04Z Removal of Internal Fixation Device from Right Ankle Joint, Open Approach (ICD-10-PCS; 2020-10-20 07:30)
DX: T84.84XA Pain due to internal orthopedic prosthetic devices, implants and grafts, initial encounter (principal); N17.9 Acute kidney failure, unspecified; D62 Acute posthemorrhagic anemia; E11.610 Type 2 diabetes mellitus with diabetic neuropathic arthropathy; E11.51 Type 2 diabetes mellitus with diabetic peripheral angiopathy without gangrene; L97.519 Non-pressure chronic ulcer of other part of right foot with unspecified severity; E11.621 Type 2 diabetes mellitus with foot ulcer; E86.0 Dehydration; I10 Essential (primary) hypertension; E87.8 Other disorders of electrolyte and fluid balance, not elsewhere classified; E78.00 Pure hypercholesterolemia, unspecified; E66.9 Obesity, unspecified; Z68.37 Body mass index [BMI] 37.0-37.9, adult; Z87.891 Personal history of nicotine dependence
CPT/HCPCS: 36415; 36430; 80048; 82728; 82948; 83540; 83550; 85025; 85027; 86850; 86900; 86901; 86923; 97110; 97161; 97165; 97535; A9270; J0690; J1040; J1100; J1170; J1644; J1815; J1885; J2250; J2370; J2405; J2704; J3010; J3370; J3480; J7030; J7050; J7120; P9016

== ENCOUNTER 2021-05-01 00:49 | Day surgery (SDC) | payer MEDICARE, OTHER, SELFPAY ==
--- NOTE | 2021-04-19 13:13 | SUR.PREOP ---
Report to the Outpatient Waiting Room, entrance under the green pavilion located off [facility], at time ___629___ on date _05/01/21__. OR Time: . - You and your visitor will be asked a series of questions to screen for COVID 19 for your protection. - A mask is required within the hospital. - Only one visitor is allowed at this time. Patient visitors will be guided where to wait when not with patient. Preoperative COVID Testing Requirements: No COVID Test needed if: (proof is required; if not received patient will have Rapid Test prior to entry) - Patient has received COVID Vaccine at least 14 days prior to procedure date or - Patient has positive COVID test result within last 90 days of surgery date. COVID Test needed if above criteria is not met If not COVID vaccinated a COVID test must be conducted within 72 hours of surgery and patient is asked to isolate self from time of testing until procedure. You will go to the [employer] [facility] for your COVID testing. The [employer] [facility] Testing site is located at the corner of [address] [facility]. You will only be called if COVID results are positive and your surgeon may reschedule your elective surgery date. Patients may have clear liquids (water, carbonated beverages, clear teas, apple juice) until 3 hours prior to surgery with a maximum of 20 ounces. - No food from midnight until time of surgery - Infants may have breast milk until 4 hours before surgery, formula 6 hours prior to surgery. - Children will be allowed to drink immediately following surgery. If applicable, please bring a bottle or sippy cup to assist with drinking. Juice, water, soda, and popsicles are readily available. For infants on formula, please bring formula the day of surgery. Pacifiers are allowed. Take the following medications with a SIP of water the morning of surgery: _CARVEDILOL, FLUOXETINE Medications to discontinue per physician STOP MULTIVITAMIN 04/28/21 Date to take last dose Please no make-up, nail wolof, hairspray, perfume, deodorant, or body powder the day of surgery. No jewelry (including any body piercings) or valuables the day of surgery, leave them at home. Please take a shower or bath the night before, or the morning of, surgery with an antibacterial soap. Wear comfortable, loose fitting clothing. Children are encouraged to wear pajamas. - Jewelry must be removed prior to entering the operating room. Rings and piercings that are not removed may be cut off. - The hospital will not accept responsibility for valuables. - Please leave all valuables, including medications, at home the day of surgery. If you are going home after surgery, a licensed courier delivery driver must drive you home. - NO public transportation without another adult. - We recommend that an adult stay with you for 24 hours following discharge. - We also recommend that you do not drive, make important decision, drink alcoholic beverages, or take any drugs that were not prescribed by your health care provider for at least 24 hours after your discharge time. For Pediatric surgeries, we recommend two adults accompany the child home (only one inside the building at this time). Follow any additional instructions given to you from your surgeon. Telephone instructions given to ____MONTRELL LIRIANO and asked if any additional questions and then verbalized understanding. Patient advised to call surgeon office or pre surgery nurse liaison [phone] if any additional questions.
[2021-04-19 13:24] VITALS: BMI 39.2
--- NOTE | 2021-04-25 15:26 | PM.IMHP ---
H&P: HPI History of Present Illness Date/Time: 04/25/21 15:26 Chief Complaint: Right ankle subtalar neuropathic arthropathy Narrative: 55-year-old woman with diabetes and peripheral neuropathy who sustained a right ankle fracture. Went on to neuropathic changes of the ankle and hindfoot. Status post reconstructive procedure with ankle and subtalar arthrodesis. Now with loss of correction of the subtalar joint and nonunion. Prominence of the hardware and risk ulceration and infection. Presents for operative treatment. Review of Systems Constitutional: Constitutional: Reports chills and Reports difficulty sleeping Eyes: Eyes: Reports no additional eye complaints ENT: Reports Normal hearing present Cardiovascular: Cardiovascular: Denies chest pain, Denies lightheadedness and Denies palpitations Respiratory: Respiratory: Denies cough, Denies dyspnea, Denies dyspnea on exertion and Denies wheezing Gastrointestinal: Gastrointestinal: Reports diarrhea and Reports nausea Genitourinary: Genitourinary: Reports no additional female genitourinary complaints Musculoskeletal: Musculoskeletal: Reports arthralgias (Right Hallux ) and Reports joint swelling (Right Hallux ) Integumentary/Breasts: Skin/Breast: Reports erythema (Right hallux ) and Reports wounds (Right dorsal hallux ulcer over the IP joint with probing to bone ) Neurologic: Reports numbness Comments: B/L feet, moderate neuropathy Psychiatric: Psychiatric: Reports no additional psychiatric complaints Hematologic/Lymphatic: Hematologic/Lymphatic: Denies easy bleeding Allergic/Immunologic: Allergic/Immunologic: Denies wheezing PMFSH Past Medical History Medical History Acute post-hemorrhagic anemia 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) Ankle syndesmosis disruption Anxiety Bimalleolar fracture of right ankle Charcot's joint of right ankle Depression Depression Diabetes mellitus type 2 with complications Diabetic foot ulcer Encounter for Postoperative Care HTN (hypertension) Hypercholesterolemia Hypertension Nonunion of subtalar arthrodesis Painful orthopaedic hardware Retained orthopedic hardware Right ankle pain Vision changes Surgical History Surgical History History of surgical procedure on eye proper using laser Family History Family History Father , father of dementia Cancer Mother Diabetes mellitus Social History Social History Smoking packs per day: 1 Smoking cigarettes per day: 20.0 Years smoked: 15 Smoking pack-years: 15.00 Smoking status: Former smoker Tobacco type: cigarettes Smoking end date: 06/03/90 Additional smoking assessment comments: 33 years ago Alcohol intake: current Alcohol use details: RARE Substance use: never Substance use type: does not use Living arrangements: with family Gender identity (if verbalized by the patient): Female Sexual Orientation (if Verbalized by the Patient): Straight or Heterosexual Spiritual care concerns: No Agree to blood products: Yes Meds Home Medications and Allergies Home Medications Medication Instructions Recorded Confirmed Type atorvastatin 10 mg PO DAILY 06/06/19 04/19/21 History glyburide-metformin 2 tablet PO BID 06/06/19 04/19/21 History multivit with min-folic acid 0.4 mg PO DAILY 06/06/19 04/19/21 History [Adult One Daily Multivitamin] carvedilol 6.25 mg PO BID 03/29/20 04/19/21 History fluoxetine 40 mg PO BID 01/05/21 04/19/21 History losartan 50 mg PO HS 01/05/21 04/19/21 History Allergies Allergy/AdvReac Type Severity Reaction Status Date / Time Penicillins Allergy Unknown Verified 04/19/21 13:29 reaction Exam Const: General: No confusion Orientation/consciousness: patient oriented x3 and No
[2021-05-01] VITALS (14 sets, daily range): BP systolic 102–130; BP diastolic 54–67; PULSE 68–76; RESP 11–20; TEMP 36.1–36.8; O2SAT 93–100
--- NOTE | ~2021-05-01 | XR_ITS ---
EXAMINATION: XR surgery orthopedic DATE: 05/01/2021 13:13 INDICATION: Right ankle with . Instrumentation removal and arthrodesis. TECHNIQUE: 3 fluoroscopic images of the right ankle were obtained during procedure performed by Dr. Mary watkins. Radiologist was not present for the imaging or procedure. The amount of fluoroscopy time used during this procedure was 1.4 minutes. COMPARISON: 10/20/2020 FINDINGS: Again seen is chronic resection of the distal fibula with some callus formation in a small retained m etallic foreign body within the distal margin of the remaining fibula. Interval removal of a prior K wire as well as prior retrograde intramedullary taylor and interlocking distal calcaneal and proximal ti bial diaphyseal screws. Revision of the attempted ankle and hindfoot arthrodesis with placement of a new lateral plate and screws spanning the distal tibia and calcaneus as well as an additional lag scr ew at the hindfoot which appears to course obliquely between the talus and the distal tibia. No acute fracture. Expected postoperative gas in the soft tissues. IMPRESSION: 1. Fluoroscopy utilized during revision of a right ankle and hindfoot arthrodesis with removal of a p rior fixation instrumentation and placement of new instrumentation as detailed above. See procedure n ote for further detail. Reviewed, dictated and finalized at location A. OLOGICAL ENGINEER IMPRESSION: 1. Fluoroscopy utilized during revision of a right ankle and hindfoot arthrodes is with removal of a prior fixation instrumentation and placement of new instru mentation as detailed above. See procedure note for further detail.
--- NOTE | 2021-05-01 07:06 | WPDHPUPDATE1 ---
History and Physical Update Update Date/Time: 05/01/21 07:06 History and Physical has been reviewed, including an updated exam of the patient. There are NO changes in the patient's condition. Risks, benefits, and alternatives have been discussed and questions answered. Patient agrees to proceed with procedure.
[2021-05-01] MEDS: ACETAMINOPHEN 500 MG TABLET 1000 MG PO (07:49)
--- NOTE | 2021-05-01 07:50 | WPDANESEPPF ---
Anes - Initial Pre Proc Eval Procedure: Operation Date: 05/01/21 08:30 Proposed Procedures p Right Foot Subtalar Arthrodesis, - Alonzo Kuo MD s Removal Hardware Right Ankle - Alonzo Kuo MD Date/Time: 05/01/21 07:50 Surgeon: Alonzo Kuo MD Pre Op Diagnosis: right subtalar non union, hardware failure Patient Data Age: 55 Gender: F Height: 1.7 m Weight: 109 kg Last Vital Signs Temp 36.2 C L 05/01/21 07:30 Pulse 72 05/01/21 07:30 Resp 16 05/01/21 07:30 BP 130/57 L 05/01/21 07:30 Pulse Ox 100 05/01/21 07:30 Allergies Allergy/AdvReac Type Severity Reaction Status Date / Time Penicillins Allergy Mild Unknown Verified 05/01/21 07:44 reaction Home Medications Medication Instructions Recorded Confirmed Type atorvastatin 10 mg PO DAILY 06/06/19 05/01/21 History glyburide-metformin 2 tablet PO BID 06/06/19 05/01/21 History multivit with min-folic acid 0.4 mg PO DAILY 06/06/19 05/01/21 History [Adult One Daily Multivitamin] carvedilol 6.25 mg PO BID 03/29/20 05/01/21 History fluoxetine 40 mg PO BID 01/05/21 05/01/21 History losartan 50 mg PO HS 01/05/21 05/01/21 History Patient hx anesthesia problems: none Family hx anesthesia problems: none Results Review: All pre-operative results and documents have been reviewed as part of the pre-operative evaluation. 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) Ankle syndesmosis disruption Anxiety Bimalleolar fracture of right ankle Charcot's joint of right ankle Depression Depression Diabetes mellitus type 2 with complications Diabetic foot ulcer Encounter for Postoperative Care HTN (hypertension) Hypercholesterolemia Hypertension Nonunion of subtalar arthrodesis Painful orthopaedic hardware Retained orthopedic hardware Right ankle pain Vision changes Surgical History Surgical History History of surgical procedure on eye proper using laser Family History Family History Father , father of dementia Cancer Mother Diabetes mellitus Social History Social History Smoking packs per day: 1 Smoking cigarettes per day: 20.0 Years smoked: 15 Smoking pack-years: 15.00 Smoking status: Former smoker Tobacco type: cigarettes Smoking end date: 06/03/90 Additional smoking assessment comments: 33 years ago Alcohol intake: current Alcohol use details: RARE Substance use: never Substance use type: does not use Living arrangements: with family Gender identity (if verbalized by the patient): Female Sexual Orientation (if Verbalized by the Patient): Straight or Heterosexual Spiritual care concerns: No Agree to blood products: Yes Anes - Eval Final PreProcedure Day of Procedure 05/01/21 07:50 Patient weight: obese Heart: regular rate and rhythm Lungs: clear to auscultation and normal air movement Airway: Mallampati scale class II Neurological: alert and oriented Last oral intake: >/= 8 hours ASA classification: III Emergent: no Anesthetic plan: proceed Anesthesia type and monitoring: general LMA and standard monitoring Results Review: All pre-operative results and documents have been reviewed as part of the pre-operative evaluation. Informed Consent: The patient's anesthetic plan and its attendant risks and benefits were discussed with the patient/family/POA. Questions were solicited and answers provided to the satisfaction of the patient/family/POA.
[2021-05-01] MEDS: LACTATED RINGERS 1,000 ML 30 ML IV CONT ×2 (08:01→13:18)
[2021-05-01] MEDS: KETOROLAC 15 MG/ML VIAL (*BKC) IV PUSH (08:01)
[2021-05-01 08:05] LABS: Glucose Point of Care 158 mg/dl (65-105)
--- NOTE | 2021-05-01 08:07 | SUR.PREOP ---
pt states has walker and crutches at home and aware ow to use.
[2021-05-01] MEDS: ceFAZolin 2 GM/D5W 50 ML 2 GM/50 ML BAG IVPB (09:46)
[2021-05-01] MEDS: TRANEXAMIC ACID 1,000 MG/10 ML AMPUL 1000 MG IV PUSH (10:47)
--- NOTE | 2021-05-01 13:27 | W.PM.PROC2 ---
Procedure Note - Detailed Date of Procedure 05/01/21 Pre-op Diagnosis right subtalar non union, hardware failure Post-op Diagnosis same Procedure Performed Right foot subtalar arthrodesis, removal of hardware right ankle. Surgeon Alonzo Kuo MD Diesel Engine Mechanic Apprentice construction assistant Anesthesia general Indications 55-year-old woman with diabetes and peripheral neuropathy who underwent Charcot changes of the right ankle and hindfoot subsequent to ankle fracture. She then had a hindfoot ankle fusion is complicated by a nonunion of the subtalar joint. She now presents for revision arthrodesis of the subtalar joint and removal of the hardware. Description of Procedure What was done: Patient identified in the preoperative holding. Informed consent given. Operative extremity marked. Patient received intravenous antibiotics. Patient brought to the operating room where underwent general anesthetic by anesthesia team. Positioned supine on operating room table. Time-out performed confirming the patient, site of the surgery and the plan. Right lower extremity prepped draped usual sterile surgical fashion using a ChloraPrep skin solution. Foot and Ankle exsanguinated and a thigh tourniquet inflated 250 mmHg. The hardware which was prominent on the plantar aspect of the foot and creating an ulcer was removed 1st. The locking screws from medial to lateral at the proximal end of the nail were removed with 15 blade knife for the skin blunt penetration and removal of the screws. Fifteen blade knife was then used to make incision bigger on the bottom of foot. The nail was identified and removed. The intramedullary canal was then reamed with flexible reamers to a size 13 mm. Wounds thoroughly irrigated and closed with 3-0 Monocryl interrupted suture and lolita. The lateral incision which been made previously for the previous hindfoot arthrodesis was utilized and made again with a 15 blade knife. Hemostasis controlled electrocautery. Dissection carried down to the ankle and subtalar joints. There was noted to be fusion of the ankle and nonunion of the subtalar joint with valgus alignment. Subtalar joint was then prepared with osteotomes chondral rongeur his and curettes. This was then thoroughly irrigated antibiotic solution. Peroneal tendons were then released to provide reduction of the subtalar joint out of valgus position. Fixation was then achieved with a lateral plate and locking screw construct as well as 1 cannulated 5.0 mm screw across the talonavicular joint into the tibia. Peroneal tenodesis then performed with the brevis to the longus to remove the deforming valgus force of the brevis and brevis released distally with 15 blade knife. Tenodesis performed with 0 Vicryl interrupted suture. Thorough irrigation of the wound performed in fascia closed with 0 Vicryl interrupted suture. Subcutaneous tissue repaired with 3-0 Monocryl interrupted suture and skin repaired with lolita. Tourniquet then released in good capillary refill noted in the toes. No bleeding encountered through the incision. Sterile dressing applied. Well-padded bulky dressing with cast applied. The patient was then woke from anesthesia, extubated and taken to the recovery room in stable condition. All sponge, needle, instrument counts were correct at the end of the case. Estimated Blood Loss -100.0 Tourniquet Time 150 Urine Output -60.0 Drains No Packing No Pathology none sent Complications None Condition stable Disposition PACU
[2021-05-01 14:05] LABS: Glucose Point of Care 99 mg/dl (65-105)
--- NOTE | 2021-05-01 15:19 | ADMGEN ---
This patient, Julia Ingram, was admitted to Medical Room 253-01. Patient/family oriented to hospital policies and general routines including ID bracelet, bed and alarms, visiting hours, pain management, procedures, bathroom and other care routines, personal items, smoking policy, room service/diet, and visiting hours. Information on how to activate the Rapid Response Team has been discussed. Patient/Family are encouraged to report perceived risks to care and to ask questions if they do not understand what they are told or what they should do. Patient in bed resting comfortably at this time with no complaints of pain. Will continue to monitor.
[2021-05-01] MEDS: SODIUM CHLORIDE 0.9% IV 1,000 ML 80 ML IV CONT (15:38)
[2021-05-01 16:29] LABS: Glucose Point of Care 84 mg/dl (65-105)
[2021-05-01] MEDS: SENNA/DOCUSATE SODIUM TABLET 2 TAB PO (17:16)
[2021-05-01] MEDS: carvediloL 6.25 MG TABLET PO (17:16)
[2021-05-01] MEDS: FLUoxetine HCL 20 MG CAPSULE 40 MG PO (20:40)
[2021-05-01] MEDS: LOSARTAN POTASSIUM 50 MG TABLET PO (20:41)
[2021-05-01 21:51] LABS: Glucose Point of Care 181 mg/dl (65-105)
[2021-05-01] MEDS: ONDANSETRON INJ 4 MG/2 ML VIAL IV PUSH (21:51)
[2021-05-02 00:17] VITALS: BP 113/52; PULSE 84; RESP 18; TEMP 36.6; O2SAT 98
[2021-05-02 05:03] VITALS: BP 110/60; PULSE 91; RESP 20; TEMP 37.4; O2SAT 99
[2021-05-02 05:42] LABS: Basophils Percent Auto 0.4 % (0.2-1.2); Eosinophils Absolute Auto 0.1 K/mm3 (0-0.3); Eosinophils Percent Auto 1.6 % (0-4.4); Hematocrit 27.4 % (37.0-47.0); Immature Granulocyte Absolute 0.03 K/mm3 (0.00-0.031); Immature Granulocyte Percent A 0.4 % (0-0.5); Lymphocytes Percent Auto 12.3 % (18.3-44.2); Mean Corpuscular HGB Conc 32.8 g/dl (32-36); Mean Corpuscular Hemoglobin 31.4 pg (26-34); Mean Corpuscular Volume 95.5 fl (80-100); Mean Platelet Volume 10.2 fl (7.4-10.4); Monocytes Absolute Auto 0.6 K/mm3 (0.1-0.6); Neutrophils Absolute Auto 5.7 K/mm3 (1.3-6.7); Neutrophils Percent Auto 77.3 % (45.5-73.1); Platelet Count Result 153 k/mm3 (150-375); Red Blood Count 2.87 M/mm3 (4.2-5.4); Red Cell Distribution Width 12.1 % (11.5-14.5); White Blood Count 7.3 K/mm3 (4.5-10.0)
[2021-05-02 05:58] LABS: Anion Gap 6 mmol/L (8-16); Blood Urea Nitrogen 36 mg/dL (7-17); Calcium 8.2 mg/dL (8.4-10.2); Carbon Dioxide 23 mmol/L (22-30); Chloride 102 mmol/L (98-107); Estimated CRCL calculation 55 ml/min; Estimated Glomerular Filt Rate 42; Glucose 179 mg/dL (65-110); Potassium 4.7 mmol/L (3.4-5.0); Sodium 131 mmol/L (137-145)
[2021-05-02 08:00] LABS: Glucose Point of Care 159 mg/dl (65-105)
[2021-05-02] MEDS: SENNA/DOCUSATE SODIUM TABLET 2 TAB PO (08:17)
[2021-05-02] MEDS: ASPIRIN 325 MG ENTERIC TABLET 650 MG PO (08:17)
[2021-05-02] MEDS: polyethylene glycoL 3350 17 GM POWD.PACK PO (08:17)
[2021-05-02 08:18] VITALS: PULSE 88
[2021-05-02] MEDS: ATORVASTATIN 10 MG TABLET PO (08:18)
[2021-05-02] MEDS: carvediloL 6.25 MG TABLET PO (08:18)
[2021-05-02] MEDS: THERAPEUTIC MULTIVITAMINS/MINERALS TAB (*BKC) 1 TABLET PO (08:18)
[2021-05-02] MEDS: FLUoxetine HCL 20 MG CAPSULE 40 MG PO (08:18)
--- NOTE | 2021-05-02 09:34 | WPDANESPN ---
Anes - Prog Note Post-Op Date/Time: 05/02/21 09:34 Cardiovascular status: normal Respiratory status: normal Airway patency: baseline Mental status: baseline Post-Op hydration status: normal Vital Signs: Last Vital Signs Temp 37.4 C 05/02/21 05:03 Pulse 88 05/02/21 08:18 Resp 20 05/02/21 05:03 BP 110/60 05/02/21 05:03 Pulse Ox 99 05/02/21 05:03 Pain Score (VAS): 0 I/O: Intake & Output 05/01/21 05/02/21 05/02/21 23:59 07:59 15:59 Intake Total 410 1340 240 Output Total 800 Balance 410 540 240 Laboratory Tests 05/02/21 05:10 05/02/21 05:10 05/01/21 05/01/21 05/01/21 14:02 16:24 21:48 WBC RBC Hgb Hct MCV MCH MCHC RDW Plt Count MPV Immature Gran % (Auto) Neut % (Auto) Lymph % (Auto) Osborne % (Auto) Eos % (Auto) Baso % (Auto) Lymph # (Auto) Osborne # (Auto) Eos # (Auto) Baso # (Auto) Abs Immat Gran (auto) Absolute Neuts (auto) Absolute Nucleated RBC Nucleated RBC % Sodium Potassium Chloride Carbon Dioxide Anion Gap BUN Creatinine Estim Creat Clear Calc Estimated GFR Glucose POC Capillary Glucose 99 84 181 H Calcium 05/02/21 05/02/21 05/02/21 05:10 05:10 07:56 WBC 7.3 RBC 2.87 L Hgb 9.0 L Hct 27.4 L MCV 95.5 MCH 31.4 MCHC 32.8 RDW 12.1 Plt Count 153 MPV 10.2 Immature Gran % (Auto) 0.4 Neut % (Auto) 77.3 H Lymph % (Auto) 12.3 L Osborne % (Auto) 8.0 Eos % (Auto) 1.6 Baso % (Auto) 0.4 Lymph # (Auto) 0.90 Osborne # (Auto) 0.6 Eos # (Auto) 0.1 Baso # (Auto) 0.0 Abs Immat Gran (auto) 0.03 Absolute Neuts (auto) 5.7 Absolute Nucleated RBC 0.0 Nucleated RBC % 0.0 Sodium 131 L Potassium 4.7 Chloride 102 Carbon Dioxide 23 Anion Gap 6 L BUN 36 H Creatinine 1.30 H Estim Creat Clear Calc 55 Estimated GFR 42 L Glucose 179 H POC Capillary Glucose 159 H Calcium 8.2 L Post-procedural complaints: none Patient Feedback: Patient satisfied with anesthetic care.
[2021-05-02 10:00] VITALS: BP 105/54; PULSE 88; RESP 16; TEMP 36.4; O2SAT 97
[2021-05-02 11:21] LABS: Glucose Point of Care 224 mg/dl (65-105)
[2021-05-02] MEDS: INSULIN ASPART (*BKC) 100 UNITS/ML SUB-Q (11:41)
--- NOTE | 2021-05-02 14:38 | PM.DS ---
DS: Admitting Diagnosis Discharge Date 05/02/21 Admitting Diagnosis Charcot arthropathy with nonunion right hindfoot DS: Discharge Diagnosis Discharge Diagnosis (1) Nonunion of subtalar arthrodesis: Code(s): M96.0 - Pseudarthrosis after fusion or arthrodesis Status: Acute (2) Painful orthopaedic hardware: Code(s): T84.84XA - Pain due to internal orthopedic prosthetic devices, implants and grafts, initial encounter Status: Acute (3) Retained orthopedic hardware: Code(s): Z96.9 - Presence of functional implant, unspecified Status: Acute (4) Charcot's joint of right ankle: Code(s): M14.671 - Charcot's joint, right ankle and foot Status: Acute (5) Peroneal tendinitis of right lower extremity: Code(s): M76.71 - Peroneal tendinitis, right leg Status: Acute DS: Summary Hospital Course Reason for hospitalization: Diabetes with neuropathy and Charcot right ankle. Status post arthrodesis with nonunion of the subtalar joint. Now with deformity and prominence of the hardware. Presents for operative treatment. Hospital Course: Operative correction right lower extremity May 01. Tolerated without incident. Admitted to the floor postoperatively for postoperative medical stabilization and pain control. Followed a routine postoperative course. Was weaned from IV pain medication to oral medication. Passed physical therapy for nonweightbearing and ADLs. Patient was tolerating regular diet. Her Gutierrez catheter was removed on hospital day 1 and she was voiding appropriately. She was cleared for discharge home. Status at Discharge Cognitive/behavioral status at discharge: Alert and oriented x3. Cognitive status at Baseline. Functional status at discharge: uses cane/walker Overall status at discharge: patient is not back to baseline Time Spent with Patient Time attestation: Total time spent providing and/or coordinating discharge services: Specific discharge activities: nonweightbearing right lower extremity. Walker or wheelchair for ambulation. Edema control reviewed. Continue with good blood sugar control. Follow up in orthopedic office in 1 week. Cast care instructions reviewed. Exam Const: General: No confusion Orientation/consciousness: patient oriented x3 and No confusion HENMT: Head: normal to inspection, normocephalic and atraumatic Eyes: Conjunctivae: conjunctivae normal Sclera: sclerae normal Neck: Neck: supple and nontender Chest: Chest palpation & inspection: normal inspection of the chest Resp: Effort & Inspection: normal respiratory effort and no audible wheezes Cardio: Rate: regular rate Rhythm: regular rhythm : General: Yes deferred Skin: General skin exam: no rashes or lesions noted Neuro: General: patient oriented x3 and No confusion Extrem: General: capillary refill normal Right upper extremity: normal to inspection Left upper extremity: normal to inspection Right lower extremity: hip/thigh Details: no tenderness and knee Details: abnormal ROM ( Knee range of motion deferred secondary to fracture); no tenderness and no swelling Left lower extremity: normal to inspection, hip/thigh Details: normal to inspection, knee Details: normal to inspection, ankle Details: normal to inspection and normal ROM ( Active flexion and extension intact); no tenderness and no swelling and foot Details: vascular exam Details: dorsalis pedis pulse present and normal capillary refill, tendon exam active flexion normal and active flexion abnormal and motor-sensory exam two point discrimination abnormal in all toes and light-touch abnormal in all toes; no tenderness Other: right lower extremity cast in place. Exposed toes with good capillary refill. Knee exam benign. Psych: Affect: normal affect DS: Data Data Completed and Pending Labs on day of discharge: Labs from last 24 hours 05/02/21 05/02/21 05/02/21 11:19 07:56 05:10 WBC R
== END 2021-05-02 13:15 | disposition home or self-care (01) ==
LOC: ANHSURGERY 06:27 → ANH2MED 16:35
PROVIDERS: PCP Internal Medicine; Visit Provider Orthopaedic Surgery
PROC: (CPT 28750; principal; 2021-05-01 08:30)
PROC: (CPT 28725; 2021-05-01 08:30)
DX: M96.0 Pseudarthrosis after fusion or arthrodesis (principal); T84.84XA Pain due to internal orthopedic prosthetic devices, implants and grafts, initial encounter; Y83.8 Other surgical procedures as the cause of abnormal reaction of the patient, or of later complication, without mention of misadventure at the time of the procedure; M76.71 Peroneal tendinitis, right leg; E11.610 Type 2 diabetes mellitus with diabetic neuropathic arthropathy; E11.42 Type 2 diabetes mellitus with diabetic polyneuropathy; I10 Essential (primary) hypertension; E78.00 Pure hypercholesterolemia, unspecified; F41.8 Other specified anxiety disorders; Z87.891 Personal history of nicotine dependence; E66.9 Obesity, unspecified; Z68.37 Body mass index [BMI] 37.0-37.9, adult; Z79.84 Long term (current) use of oral hypoglycemic drugs
CPT/HCPCS: 28725; 20680; 36415; 80048; 82948; 85025; 97161; 97165; 97530; A9270; C1769; J0690; J1040; J1815; J1885; J2250; J2270; J2405; J2704; J7030; J7120

== ENCOUNTER 2021-10-09 08:03 | Outpatient (RCR) | payer MEDICARE, OTHER, SELFPAY ==
--- NOTE | 2021-10-09 09:05 | PTOPEVAL ---
Thank you for referring Julia Ingram to [facility].? The patient is scheduled to be seen for therapy? __2__x/week for 10 visits. Please review, sign, date and return this plan of care ALEJO. I agree with and certify that the following plan of care is medically necessary. Referring Physician Date Admitting Provider: Attending Provider: Alonzo Ramirez MD Referring Provider: *PT Outpatient Evaluation Start: 10/09/21 08:02 Freq: Status: Active Protocol: Document 10/09/21 08:02 NAZARIO (Rec: 10/09/21 09:05 NAZARIO [email or web address]) Therapy Assessment Status Assessment Status Assessment Status Evaluation Outpatient Past Medical History Neurological History Hx Neurological Disorders No Significant History Cardiovascular History Hx Hypercholesterolemia Yes Hx Hypertension Yes Respiratory History Hx Respiratory Disorders No Significant History Gastrointestinal History Hx Gastroesophageal Reflux Disease Yes Genitourinary History Hx Renal Disease Yes: STAGE 2 RENAL FAILURE Musculoskeletal History Hx Amputation Yes: RT BIG TOE Hx Arthritis Yes Hx Back Pain Yes Hx Fractures Yes: RT ANKLE FX Hx Gout Yes Hx Orthopedic Surgery Yes: RT ANKLE X3 Hx Osteomyelitis Yes: R big toe 2020 Hx Osteoporosis Yes Hematological History Hx Anemia Yes: NO PROBLEMS CURRENTLY Endocrine History Hx Diabetes Yes HEENT History Hx Cataracts Yes: BILAT Hx Retinal Detachment Yes: BILAT Hx Eye Surgery Yes: LT EYE Integumentary History Hx Other Skin Disorders Yes: RT INNER ANKLE WOUND- DR RAMIREZ AWARE Reproductive History Hx Section Yes: X3 Hx Post Menopausal Yes Psychosocial History Hx Anxiety Yes Hx Depression Yes Pain History History of Any Previous or Ongoing No Significant History Instance of Pain Anesthesia History Hx Other Anesthesia Reactions Yes: SLOW TO WAKE Evaluation Information Problem Diagnosis right peroneal tendinitis, 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 reports that she broke her Query Text:As Reported By Patient/ foot in March. She reports Family she was casted and NWB for a long duration. She reports that she transitioned to WB several months after fx. She did undergo surgery to address
== END 2021-11-22 10:24 | disposition home or self-care (01) ==
LOC: CHSPT 08:03
PROVIDERS: PCP Internal Medicine; Visit Provider Orthopaedic Surgery
DX: M76.71 Peroneal tendinitis, right leg (principal); M96.0 Pseudarthrosis after fusion or arthrodesis
CPT/HCPCS: 97110; 97112; 97116; 97161

== ENCOUNTER 2022-03-27 11:01 | Outpatient (CLI) | payer MEDICARE, SELFPAY ==
[2022-03-27 12:55] LABS: Influenza A QL RT-PCR Negative (Negative); Influenza B QL RT-PCR Negative (Negative); SARS-CoV-2 RNA PCR Negative (Negative)
== END 2022-03-27 11:02 | disposition home or self-care (01) ==
LOC: CHSLAB 11:03
PROVIDERS: PCP Internal Medicine; Visit Provider Internal Medicine
DX: Z20.822 Contact with and (suspected) exposure to COVID-19 (principal)
CPT/HCPCS: 87502; U0003; U0005

== ENCOUNTER 2023-06-11 12:05 | Outpatient (CLI) | payer MEDICARE, OTHER, SELFPAY ==
--- NOTE | ~2023-06-11 | MM_ITS ---
EXAMINATION: MM screening [facility] BI w carli HISTORY: Screening mammogram TECHNIQUE: Craniocaudal and mediolateral oblique 3-D tomosynthesis images were obtained and synthetic 2-D images were generated. CAD analysis was submitted and interpreted. COMPARISON: None, baseline BREAST PARENCHYMAL COMPOSITION: There are scattered areas of fibroglandular density. FINDINGS: RIGHT BREAST: No suspicious mass, calcification, or architectural distortion are identified to sugges t malignancy. LEFT BREAST: A mass is present in the anterior third of the lower breast 4 cm from the nipple at the 7:00 location. IMPRESSION: 1. Left breast mass. 2. Additional mammographic views and possible breast ultrasound are recommended to evaluate the left breast mass and establish a baseline given that this is the first mammographic examination. BI-RADS Category 0: Incomplete: Needs additional imaging evaluation. Reviewed, dictated and finalized at location A. MANAGER IMPRESSION: 1. Left breast mass. 2. Additional mammographic views and possible breast ultrasound are recommended to evaluate the left breast mass and establish a baseline given that this is t he first mammographic examination. BI-RADS Category 0: Incomplete: Needs additional imaging evaluation.
--- NOTE | ~2023-06-11 | DEXA_ITS ---
Bone Density Report Name: MONTRELL LIRIANO Age: 57 Sex: Female Ethnicity: White Date of : 1965 Indication: postmenopausal; screening for osteoporosis; height loss; Referring Provider: МАРИЯ BERRY Study: Bone densitometry was performed. Exam Date: June 11, 2023 Accession number: [id number] Bone Density: Region BMD T-score Z-score Classification AP Spine(L1-L4) 1.151 0.9 2.3 Normal Femoral Neck (Left) 0.805 -0.4 0.8 Normal Total Hip (Left) 0.995 0.4 1.3 Normal Femoral Neck (Right) 0.742 -1.0 0.3 Normal Total Hip (Right) 0.943 0.0 0.9 Normal Femoral Neck Mean 0.774 -0.7 0.5 Normal Total Hip Mean 0.969 0.2 1.1 Normal World Health Organization criteria for BMD impression classify patients as: Normal (T-score at or above -1.0), Osteopenia (T-score between -1.0 and -2.5), or Osteoporosis (T-score at or below -2.5). 10-year Fracture Risk: FRAX not reported because: All T-scores for Spine Total, Hip Total, Femoral Neck at or above -1.0 Clinical Information Provided by Patient: Patient maximum height was 67 Menopause Age: 51 No regular weight bearing exercise Drinks caffeinated beverages Onset of menses at age 11 Number of children 3 Impression: The patient has normal bone mass. Discussion: BONE DENSITY IS ABOVE THE MINIMUM DESIRABLE LEVEL AT ALL SKELETAL SITES TESTED. This patient?s bone mineral density is above the minimum desirable level (T-score -1.0 or better) at all sites measured. The patient should follow a healthful lifestyle (good nutrition with adequate calcium and vitamin D, and appropriate weight-bearing exercise). Follow-Up: Consider repeating this study in 5 years or sooner if there is some new clinical indication. Reported by: Dr. hCeng Fisher on 06/11/2023 12:47:00 PM. Reviewed, dictated and finalized at location A.
== END 2023-06-11 12:06 | disposition home or self-care (01) ==
LOC: CHSIMG 12:06
PROVIDERS: PCP Internal Medicine; Visit Provider Internal Medicine
DX: Z12.31 Encounter for screening mammogram for malignant neoplasm of breast (principal); Z78.0 Asymptomatic menopausal state; R92.8 Other abnormal and inconclusive findings on diagnostic imaging of breast
CPT/HCPCS: 77063; 77067; 77080

== ENCOUNTER 2023-06-13 09:30 | Outpatient (CLI) | payer MEDICARE, OTHER, SELFPAY ==
--- NOTE | ~2023-06-13 | MMUS_ITS ---
EXAMINATION: MM diagnostic rosas LT w carli, US breast LT limited HISTORY: Left breast mass on screening mammogram TECHNIQUE: Additional 3-D tomosynthesis images of the left breast were performed and synthetic 2-D im ages were generated. CAD analysis was submitted and interpreted. High resolution limited left breast ultrasound was performed. COMPARISON: 06/11/2023 FINDINGS: MAMMOGRAPHIC FINDINGS: There is a 10 mm x 7 mm oval, equal density mass with indistinct margins in the lower inner breast at the 7:00 location, 4 cm from the nipple. ULTRASOUND: There is a 10 mm x 5 mm oval, parallel, complex cystic and solid mass with no posterior features or i nternal vascularity at the 7:00 location, 3 cm from the nipple. IMPRESSION: 1. Indeterminate left breast mass. 2. Ultrasound guided biopsy is recommended. BI-RADS category 4, suspicious findings. Reviewed, dictated and finalized at location A. CTURAL BIOLOGIST IMPRESSION: 1. Indeterminate left breast mass. 2. Ultrasound guided biopsy is recommended. BI-RADS category 4, suspicious findings.
== END 2023-06-13 09:31 | disposition home or self-care (01) ==
PROVIDERS: PCP Internal Medicine; Visit Provider Internal Medicine
DX: R92.8 Other abnormal and inconclusive findings on diagnostic imaging of breast (principal)
CPT/HCPCS: 76642; 77061; 77065; G0279

== ENCOUNTER 2023-06-19 08:46 | Outpatient (CLI) | payer MEDICARE, OTHER, SELFPAY ==
--- NOTE | ~2023-06-19 | MMUS_ITS ---
MM post biopsy invasive LT, US breast biopsy LT w image EXAMINATION: US GUIDED NEEDLE BIOPSY WITH VACUUM ASSISTANCE DATE: 06/19/2023 10:07 FIRER MARINE INDICATION: Left breast mass seen on prior examination. Ultrasound-guided core biopsy is requested t o evaluate for malignancy. TECHNIQUE AND FINDINGS: The risks and potential benefits of the procedure were discussed with the patient, and written inform ed consent was obtained. After sterile preparation of the left breast, 1% lidocaine was utilized for local anesthesia. 1% lidocaine with epinephrine was used for deep anesthesia. A 10G vacuum-assisted biopsy gun needle was advanced through to the outer edge of the region of inter est from a superior approach utilizing sonographic guidance. A total of 4 tissue core samples were o btained through the lesion. An Inrad tissue marker clip was then placed at the biopsy site. Hemostas is was achieved. The patient tolerated procedure well and there was no evidence of immediate complication. The patien t was given verbal instructions partly is from the department. Left breast mammograms to document ti ssue marker clip placement. The tissue samples were submitted to surgical pathology for histologic an alysis. IMPRESSION: 1. Successful ultrasound-guided vacuum-assisted biopsy of left breast mass with tissue marker placem ent. Please refer to pathology report for histologic analysis. Reviewed, dictated and finalized at location A. R MARINE IMPRESSION: 1. Successful ultrasound-guided vacuum-assisted biopsy of left breast mass wit h tissue marker placement. Please refer to pathology report for histologic anal ysis.
== END 2023-06-19 08:47 | disposition home or self-care (01) ==
LOC: ANHIMG 08:49
PROVIDERS: PCP Internal Medicine; Visit Provider Internal Medicine
DX: N60.12 Diffuse cystic mastopathy of left breast (principal); R92.8 Other abnormal and inconclusive findings on diagnostic imaging of breast
CPT/HCPCS: 19083; 88305; A4648